=== PATIENT | female | born 1995 | race Caucasian/White ===

== ENCOUNTER → 2018-04-04 16:13 | Outpatient (CLI) | payer MEDICAID, SELFPAY ==
[2018-04-04 16:46] LABS: Abs Immature Grans 0.01 k/cumm (0.0-0.09); Absolute Basophil Count 0.05 k/cumm (0.0-0.2); Absolute Eosinophil Count 0.18 k/cumm (0.0-0.7); Absolute Monocyte Count 0.46 k/cumm (0.11-0.7); Absolute Neutrophil Count 2.84 k/cumm (1.2-6.7); Basophils % 0.9; Eosinophils % 3.1; HCT 38.3 % (36.0-46.0); HGB 12.7 g/dL (12.0-15.5); Immature Grans % 0.2; Lymphocytes % 39.4; Mean Corp. HGB Concentration 33.2 g/dL (32.0-36.0); Mean Corpuscular Hemoglobin 27.8 pg (27.0-33.0); Mean Corpuscular Volume 83.8 fL (80-95); Mean Platelet Volume 10.6 fL (8.0-11.0); Monocytes % 7.9; Neutrophils % 48.5; Platelet Count 280 x1000/uL (130-400); RBC 4.57 m/cumm (4.00-5.20); RBC Distribution Width 13.2 % (11.7-14.6); White Blood Cell Count 5.84 k/cumm (4.4-10.8)
[2018-04-04 17:39] LABS: ESR 15 MM/HR (0-20)
[2018-04-04 18:08] LABS: ALT 19 U/L (12-78); AST 17 U/L (15-37); Alkaline Phosphatase 53 U/L (46-116); Anion Gap 4.2 mmol/L (3-11); BUN 13 mg/dL (7-18); Bilirubin, Total 0.7 mg/dL (0.2-1.0); CO2 29.8 mmol/L (21.0-32.0); CREATININE 0.76 mg/dL (0.55-1.02); Chloride 105 mmol/L (98-107); Glucose 66 mg/dL (70-100); Sodium 139 mmol/L (136-145); Total Protein 7.6 g/dL (6.4-8.2)
[2018-04-06 09:56] LABS: Cyclic Citrullinated Peptide <2.5 U/mL (<5.0)
[2018-04-06 13:13] LABS: Lyme Ab w Rflx to Lyme Confirm Negative
[2018-04-06 14:18] LABS: ANA Interpretation Negative (NEGAT)
== END ==
PROVIDERS: PCP Family Medicine; Visit Provider Family Medicine
DX: R21 Rash and other nonspecific skin eruption (principal); R50.9 Fever, unspecified; M25.50 Pain in unspecified joint
CPT/HCPCS: 36415; 80053; 85652; 86200; 85025; 86038; 86140; 86618

== ENCOUNTER 2018-05-01 16:34 | Outpatient (REF) | payer MEDICAID, SELFPAY ==
[2018-05-01 20:43] LABS: TSH (W/Ref FT4) 1.44 uIU/mL (0.358-3.74)
== END 2018-05-01 16:54 ==
LOC: NCHCN 16:34
PROVIDERS: PCP Family Medicine; Visit Provider Family Medicine
DX: M25.50 Pain in unspecified joint (principal)
CPT/HCPCS: 84443

== ENCOUNTER 2018-08-16 00:56 | Emergency (ER) | payer MEDICAID, SELFPAY ==
[2018-08-16] VITALS (23 sets, daily range): BP systolic 81–153; BP diastolic 62–116; PULSE 64–187; RESP 12–31; TEMP 36.6; O2SAT 97–100
--- NOTE | 2018-08-16 01:15 | DI.RAD_ITS ---
SYMPTOMS/DIAGNOSIS: POST INTUBATION AP PORTABLE CHEST: Comparison 04/29/14. The heart size and pulmonary vasculature are within normal limits. There is poor inspiration. The lungs are clear. No effusions or pneumothoraces are identified. There is an endotracheal tube. The tip of which is 3 cm above the nilson. There is a nasogastric tube which passes into the stomach. The bones appear intact. IMPRESSION: 1. No acute pulmonary process. 2. Endotracheal tube and nasogastric appear well positioned.
--- NOTE | 2018-08-16 01:28 | DI.VRAD_ITS ---
EXAM: XR Chest, 1 View EXAM DATE/TIME: 08/16/2018 12:46 AM CLINICAL HISTORY: 23 years old, female; Device placement; Other: Intubation TECHNIQUE: XR of the chest, 1 view. COMPARISON: CR ABD FLAT UPRIGHT PA CHEST 04/29/2014 7:21 PM FINDINGS: Tubes, catheters and devices: An endotracheal tube is present with termination approximately 3.5 cm from the nilson. An enteric tube is seen to course into the left upper quadrant. Lungs: Unremarkable. No consolidation. Pleural space: Unremarkable. No pleural effusion. No pneumothorax. Heart/Mediastinum: Unremarkable. No cardiomegaly. Bones/joints: Unremarkable. IMPRESSION: 1. No acute findings. 2. Endotracheal tube appears well-positioned. Dictated and Authenticated by: Fede Wei MD. Ordering:BOSSMAN Scott MD
[2018-08-16 01:36] LABS: Abs Immature Grans 0.02 k/cumm (0.0-0.09); Absolute Basophil Count 0.04 k/cumm (0.0-0.2); Absolute Eosinophil Count 0.12 k/cumm (0.0-0.7); Absolute Lymphocyte Count 2.85 k/cumm (1.2-3.4); Absolute Monocyte Count 0.66 k/cumm (0.11-0.7); Absolute Neutrophil Count 3.52 k/cumm (1.2-6.7); Basophils % 0.6; Eosinophils % 1.7; HCT 37.2 % (36.0-46.0); HGB 12.8 g/dL (12.0-15.5); Immature Grans % 0.3; Lymphocytes % 39.5; Mean Corp. HGB Concentration 34.4 g/dL (32.0-36.0); Mean Corpuscular Hemoglobin 28.6 pg (27.0-33.0); Mean Corpuscular Volume 83.2 fL (80-95); Monocytes % 9.2; Neutrophils % 48.7; Platelet Count 220 x1000/uL (130-400); RBC 4.47 m/cumm (4.00-5.20); RBC Distribution Width 12.7 % (11.7-14.6); White Blood Cell Count 7.21 k/cumm (4.4-10.8)
[2018-08-16 01:57] LABS: AST 14 U/L (15-37); Albumin 3.5 g/dL (3.4-5.0); Alkaline Phosphatase 48 U/L (46-116); BUN 13 mg/dL (7-18); Bilirubin, Total 0.4 mg/dL (0.2-1.0); CREATININE 0.88 mg/dL (0.55-1.02); Calcium 7.9 mg/dL (8.5-10.1); Chloride 107 mmol/L (98-107); Glucose 113 mg/dL (70-100); Magnesium 1.6 mg/dL (1.8-2.4); Potassium 3.3 mmol/L (3.5-5.1); Salicylate < 2.8 mg/dL (2.8-20.0); Sodium 144 mmol/L (136-145); Total Protein 6.8 g/dL (6.4-8.2)
[2018-08-16 02:03] LABS: Acetaminophen < 2 ug/mL (10-30)
[2018-08-16 02:08] LABS: ALT 16 U/L (12-78)
--- NOTE | 2018-08-16 02:12 | NUR.NOTE ---
Nursing Note: 0044-arrived via EMS by carlos. 0045 in room IV in RT AC 20 started by EMS. 0048 IV attempted x 1 without success. P 64. R 12. 127/69. 02 NC pre oxy for intubation at 10 liters. 0056 Etomidate 15 mg given IV R AC. 0057 Slim 50 mg IV given R AC. 0058 Versed gtt started 10 20 mcg/kg/hr 0100 bilateral breath sounds noted and C02 detector changing colors to yellow to purple. 0101 attached to vent settings auto set. 0101 rash noted 0102 diaz cath 18 fr. Pulse 135. 0104 NG Tube 18 fr left nare at 55 cm. 0106 Solumedrol 125 mg IV given R AC. 0109 Preg test negative 0109 portable chest xray finished. RT arrived 0116 zofran 4 mg IV given Right AC. 0117 bicarb 100 meq 2 amps pushed IVP 0118 bicarb 250 ml/hr IV started Rt ac 0123 50 gram act. charcoal given NG with 125 ml free water followed. 0123 rash gone. 142/92 112 P. labs drawn over IV. 0130 suction with yanker partial vomited. 0131 versed increased to 25 mcg/kg/hr 0134 versed titrated to 30 0135 versed titrated to 35 see vitals captured 0144 Versed 2 mg left forarm IV push 0150 RT suctioned 0150 fentanyl IV started at 2 mcg/kg/hr 0155 fentnayl 3 mcg/kg/hr IV 0157 40 mg propolol 0159 Calex here and report given to Rajiv Lazaro. 204 -report to Michele [facility].
[2018-08-16 02:21] LABS: ETHANOL BLOOD < 3.0 mg/dL (<3)
--- NOTE | 2018-08-16 02:51 | W.ED.GENAD ---
Discharge Plan Disposition Patient Disposition: [facility] Condition: Stable Discharge Details Chief Complaint: OD/Poison Clinical Impression: Overdose of tricyclic antidepressants Reason For Visit: JOHN Primary Care Provider: Yojana Lemons ED Provider: Tyler Giang [place] Meds and New Rx's Prescriptions: No Action acetaminophen [Tylenol] 325 MG tablet 500 mg PO TWO DAILY PRN RF: 0 albuterol sulfate 8.5 GM HFA aerosol inhaler 1 - 2 puff Inhalation Q6H PRN RF: 0 clotrimazole-betamethasone [Lotrisone] 45 GM cream 15 gm Topical BID Qty: 1 RF: 1 ciprofloxacin HCl 250 MG tablet 250 mg PO post-coital Qty: 40 RF: 3 etonogestrel [Nexplanon] 68 MG implant 68 mg SQ ONCE Qty: 1 RF: 0 tretinoin [Retin-A] 45 GM cream 45 gm Topical HS RF: 0 acetaminophen [Tylenol Extra Strength] 500 MG tablet 1,000 mg PO DAILY RF: 0 citalopram 20 MG tablet 10 mg PO DAILY RF: 0 amitriptyline 10 MG tablet 20 mg PO HS RF: 0 albuterol sulfate [Ventolin HFA] 8 GM HFA aerosol inhaler 2 puff Inhalation Q6H PRN RF: 0 clindamycin phosphate [Cleocin T] 60 ML lotion 60 ml Topical RF: 0 albuterol sulfate [Proventil HFA] 6.7 GM HFA aerosol inhaler 2 puff Inhalation Q4H PRN PRNQty: 1 RF: 0 Discharge Data Discharge Date/Time-TO BE ENTERED AT DEPARTURE: 08/16/18 02:14 Medical Decision Making Patient presents status post amitriptyline overdose. She arrives somnolent and it is almost impossible to understand her because of slurred speech. She does have normal vitals and is not tachycardic. Her pupils are midrange and sluggish. An EKG was immediately obtained. Initial EKG is sinus rhythm at 75. QRS is at 100. The R wave in aVR is reasonable. There are no ST changes. At this point I elected to secure the airway and plan on repeat EKG once airway and second IV established. Call was placed to [facility] previous to patient arrival. They did have an ICU bed available if she indeed needed one. Patient was intubated without difficulty. Please see procedure note. Reyes and NG tube placed. Portable chest x-ray obtained which confirms endotracheal placement as well as NG tube placement. Second IV established. Repeat EKG obtained. This EKG is sinus tachycardia at 114. The QRS remains at 100 but the R wave in aVR has become larger. She is starting to have ST depression. 2 amps of bicarb IV push were given. Sodium bicarb drip was started. Patient was placed on a Versed drip for sedation postintubation. Patient was given Zofran and then had aqueous charcoal pushed down the NG tube. Laboratory studies show a normal CBC. Chemistry significant for potassium 3.3, calcium 7.9, magnesium 1.6. Salicylate, acetaminophen, ethyl alcohol all negative. test negative. A third EKG is obtained. Sinus tachycardia at 119. QRS is narrowed to 96. The R wave in aVR has gone back to normal size. ST changes have improved. Bicarb seems to have improved her EKG changes. Case was discussed with [facility] ICU team. Patient is accepted for transfer to [facility]. She will be going by ambulance with medic. Prior to transfer her sedation was wearing off. The Versed was upped. Fentanyl was started. She received a few boluses of Versed and ultimately a couple boluses of propofol. She left here sedated on both fentanyl and Versed drip. An EKG just prior to the leaving showed sinus rhythm at 94. QRS was at 98. R wave in aVR looked fine. Minimal ST changes. I did discuss with the mother and father patient's management here. They were in the room once she had been stabilized. Patient is transferred to [facility] ICU in stable condition with a diagnosis of try cyclic antidepressant overdose. Lab Data Lab results reviewed: Yes I reviewed the patient's lab results. ECG Data Attestation: I personally reviewed and interpreted this ECG (s) as follows: Interpretation: please see MDM; multiple EKG done HPI General Mode of arrival: EMS. Date/Time Provider Initiated Documentation: 08/16/18 01:14. Limitations to Documentation: altered mental status. Information obtained by: patient, family and EMS. HPI Narrative: Patient is brought in by EMS after alleged overdose of amitriptyline. Per report patient just had this bottle filled. There was a maximum of ninety 10 mg tablets. She says she took the whole bottle 1-2 hours prior. Mother actually called here asking whether she should call 911 or not. We told her that she absolutely should. On EMS arrival patient was somnolent but able to answer questions. She had normal vital signs. She appeared to have a narrow QRS on the monitor. She was transported here with IV in place. Related Data Home Medications Medication Instructions Recorded Confirmed acetaminophen [Tylenol] 500 mg PO TWO DAILY PRN tab-cap 08/29/13 12/12/14 albuterol sulfate 1 - 2 puff INHALATION Q6H PRN 08/29/13 12/12/14 inhaler clotrimazole-betamethasone 15 gm TOPICAL BID #1 tube 09/16/14 [Lotrisone Cream] ciprofloxacin HCl 250 mg PO post-coital #40 tab 09/11/15 etonogestrel [Nexplanon] 68 mg SQ ONCE #1 implant 09/17/15 acetaminophen [Tylenol Extra 1,000 mg PO DAILY tab-cap 01/15/16 Strength] albuterol sulfate [Ventolin Hfa] 2 puff INHALATION Q6H PRN inhaler 01/15/16 amitriptyline 20 mg PO HS tab-cap 01/15/16 citalopram 10 mg PO DAILY tab-cap 01/15/16 clindamycin phosphate [Cleocin T] 60 ml TOPICAL script 01/15/16 tretinoin [Retin-A 0.1% Cream] 45 gm TOPICAL HS script 01/15/16 albuterol sulfate [Proventil HFA] 2 puff INHALATION Q4H PRN PRN #1 03/27/16 [email or web address] Previous Rx's Medication Instructions Recorded albuterol sulfate [Proventil HFA] 2 puff INHALATION Q4H PRN PRN #1 03/27/16 [email or web address] Allergies Allergy/AdvReac Type Severity Reaction Status Date / Time No Known Drug Allergies Allergy none Unverified 12/20/15 04:26 General Stated Complaint: OD/Poison NEGIN: 1 Review of Systems Review of Systems Unobtainable due to mental status [facility] Medical History Anxiety (Chronic) Asthma (Chronic) Previous known suicide attempt (Chronic) Social History Smoking/Tobacco Use Status: Never Exam Const General: lethargic Limitations: altered mental status [facility] Head: normocephalic and atraumatic Mouth: oropharynx normal Throat: posterior oropharynx normal Eyes Pupils: PERRL (mid range and sluggish) Neck Neck: trachea midline and supple Resp Auscultation: clear to auscultation bilaterally Cardio Rate: regular rate Rhythm: regular rhythm Heart Sounds: S1 normal and S2 normal Pulses: normal peripheral pulses GI Inspection: normal to inspection Palpation: soft and nontender Skin General skin exam: no rashes or lesions noted Neuro General: no focal motor deficits, CN's II-XI intact bilaterally and other (somnolent/decreased level of consciousness) Course Vital Signs Respiratory Rate 16 08/16/18 00:41 Temperature 97.9 F 08/16/18 01:10 Temperature Source Skin 08/16/18 01:10 Pulse 89 08/16/18 01:56 Pulse 96 H 08/16/18 01:51 Respiratory Rate 12 08/16/18 02:11 Respiratory Effort 08/16/18 01:53 Respiratory Depth Normal 08/16/18 00:41 Respiratory Pattern Normal 08/16/18 00:41 Blood Pressure 128/76 08/16/18 01:56 Blood Pressure Mean 88 08/16/18 01:56 Blood Pressure Position Supine 08/16/18 01:10 Pulse Oximetry 98 08/16/18 02:11 Respiratory End-tidal CO2 32 08/16/18 02:11 Oxygen Delivery Method Room Air 08/16/18 01:10 Oxygen Flow Rate 0 08/16/18 01:10 Fraction of Inspired Oxygen (FIO2) 21 08/16/18 02:11 Lab/Test Results Lab/Test Results: Laboratory Tests Range/Units 08/16/18 08/16/18 08/16/18 01:25 01:25 01:25 WBC (4.4-10.8) k/cumm 7.21 RBC (4.00-5.20) m/cumm 4.47 Hgb (12.0-15.5) g/dL 12.8 Hct (36.0-46.0) % 37.2 MCV (80-95) fL 83.2 MCH (27.0-33.0) pg 28.6 MCHC (32.0-36.0) g/dL 34.4 RDW (11.7-14.6) % 12.7 Plt Count (130-400) x1000/uL 220 MPV (8.0-11.0) fL 11.0 Immature Gran % 0.3 Neutrophils % 48.7 Lymphocytes % 39.5 Monocytes % 9.2 Eosinophils % 1.7 Basophils % 0.6 Absolute Neutrophils (1.2-6.7) k/cumm 3.52 Absolute Lymphocytes (1.2-3.4) k/cumm 2.85 Absolute Monocytes (0.11-0.7) k/cumm 0.66 Absolute Eosinophils (0.0-0.7) k/cumm 0.12 Absolute Basophils (0.0-0.2) k/cumm 0.04 Sodium (136-145) mmol/L 144 Potassium (3.5-5.1) mmol/L 3.3 L Chloride (98-107) mmol/L 107 Carbon Dioxide (21.0-32.0) mmol/L 31.0 Anion Gap (3-11) mmol/L 6.0 BUN (7-18) mg/dL 13 Creatinine (0.55-1.02) mg/dL 0.88 Estimated GFR/1.73 m2 (mL/min/1.73m2) >= 60.00 Glucose (70-100) mg/dL 113 H Calcium (8.5-10.1) mg/dL 7.9 L Magnesium (1.8-2.4) mg/dL 1.6 L Total Bilirubin (0.2-1.0) mg/dL 0.4 AST (15-37) U/L 14 L ALT (12-78) U/L 16 Alkaline Phosphatase (46-116) U/L 48 Total Protein (6.4-8.2) g/dL 6.8 Albumin (3.4-5.0) g/dL 3.5 Salicylates (2.8-20.0) mg/dL < 2.8 L Acetaminophen (10-30) ug/mL < 2 L Ethyl Alcohol (<3) mg/dL < 3.0 Procedures Intubation Time out performed: Yes sedative: Etomidate Mg Given: 15 paralytic: Rocuronium Mg Given: 50 Laryngoscope: Gerardo ET Tube Size: 7 ET Tube Uncuffed: Yes Tube Secured Depth (cm): 22 Tube Secured Location: lips Tube Placement Confirmation: visualized tube passing through cords, equal breath sounds bilaterally and confirmation by capnometry Patient Tolerated Procedure: well Intubation Complications: none Critical Care Time Critical Care Time: Yes Total Critical Care Time: 60 Attestation: Management of TCA overdose
--- NOTE | 2018-08-16 03:08 | ED.GENADUL_ITS ---
Discharge Plan Disposition Patient Disposition: [facility] Condition: Stable Discharge Details Chief Complaint: OD/Poison Clinical Impression: Overdose of tricyclic antidepressants Reason For Visit: JOHN Primary Care Provider: Yojana Lemons ED Provider: Tyler Giang [place] Meds and New Rx's Prescriptions: No Action acetaminophen [Tylenol] 325 MG tablet 500 mg PO TWO DAILY PRN RF: 0 albuterol sulfate 8.5 GM HFA aerosol inhaler 1 - 2 puff Inhalation Q6H PRN RF: 0 clotrimazole-betamethasone [Lotrisone] 45 GM cream 15 gm Topical BID Qty: 1 RF: 1 ciprofloxacin HCl 250 MG tablet 250 mg PO post-coital Qty: 40 RF: 3 etonogestrel [Nexplanon] 68 MG implant 68 mg SQ ONCE Qty: 1 RF: 0 tretinoin [Retin-A] 45 GM cream 45 gm Topical HS RF: 0 acetaminophen [Tylenol Extra Strength] 500 MG tablet 1,000 mg PO DAILY RF: 0 citalopram 20 MG tablet 10 mg PO DAILY RF: 0 amitriptyline 10 MG tablet 20 mg PO HS RF: 0 albuterol sulfate [Ventolin HFA] 8 GM HFA aerosol inhaler 2 puff Inhalation Q6H PRN RF: 0 clindamycin phosphate [Cleocin T] 60 ML lotion 60 ml Topical RF: 0 albuterol sulfate [Proventil HFA] 6.7 GM HFA aerosol inhaler 2 puff Inhalation Q4H PRN PRNQty: 1 RF: 0 Discharge Data Discharge Date/Time-TO BE ENTERED AT DEPARTURE: 08/16/18 02:14 Medical Decision Making Patient presents status post amitriptyline overdose. She arrives somnolent and it is almost impossible to understand her because of slurred speech. She does have normal vitals and is not tachycardic. Her pupils are midrange and sluggish. An EKG was immediately obtained. Initial EKG is sinus rhythm at 75. QRS is at 100. The R wave in aVR is reasonable. There are no ST changes. At this point I elected to secure the airway and plan on repeat EKG once airway and second IV established. Call was placed to [facility] previous to patient arrival. They did have an ICU bed available if she indeed needed one. Patient was intubated without difficulty. Please see procedure note. Reyes and NG tube placed. Portable chest x-ray obtained which confirms endotracheal placement as well as NG tube placement. Second IV established. Repeat EKG obtained. This EKG is sinus tachycardia at 114. The QRS remains at 100 but the R wave in aVR has become larger. She is starting to have ST depression. 2 amps of bicarb IV push were given. Sodium bicarb drip was started. Patient was placed on a Versed drip for sedation postintubation. Patient was given Zofran and then had aqueous charcoal pushed down the NG tube. Laboratory studies show a normal CBC. Chemistry significant for potassium 3.3, calcium 7.9, magnesium 1.6. Salicylate, acetaminophen, ethyl alcohol all negative. test negative. A third EKG is obtained. Sinus tachycardia at 119. QRS is narrowed to 96. The R wave in aVR has gone back to normal size. ST changes have improved. Bicarb seems to have improved her EKG changes. Case was discussed with [facility] ICU team. Patient is accepted for transfer to [facility]. She will be going by ambulance with medic. Prior to transfer her sedation was wearing off. The Versed was upped. Fentanyl was started. She received a few boluses of Versed and ultimately a couple boluses of propofol. She left here sedated on both fentanyl and Versed drip. An EKG just prior to th e leaving showed sinus rhythm at 94. QRS was at 98. R wave in aVR looked fine. Minimal ST changes. I did discuss with the mother and father patient's management here. They were in the room once she had been stabilized. Patient is transferred to [facility] ICU in stable condition with a diagnosis of try cyclic antidepressant overdose. Lab Data Lab results reviewed: Yes I reviewed the patient's lab results. ECG Data Attestation: I personally reviewed and interpreted this ECG (s) as follows: Interpretation: please see MDM; multiple EKG done HPI General Mode of arrival: EMS . Date/Time Provider Initiated Documentation: 08/16/18 01:14 . Limitations to Documentation: altered mental status . Information obtained by: patient, family and EMS . HPI Narrative: Patient is brought in by EMS after alleged overdose of amitriptyline. Per report patient just had this bottle filled. There was a maximum of ninety 10 mg tablets. She says she took the whole bottle 1-2 hours prior. Mother actually called here asking whether she should call 911 or not. We told her that she absolutely should. On EMS arrival patient was somnolent but able to answer questions. She had normal vital signs. She appeared to have a narrow QRS on the monitor. She was transported here with IV in place. Related Data Home Medications Medication Instructions Recorded Confirmed acetaminophen [Tylenol] 500 mg PO TWO DAILY PRN tab-cap 08/29/13 12/12/14 albuterol sulfate 1 - 2 puff INHALATION Q6H PRN 08/29/13 12/12/14 inhaler clotrimazole-betamethasone 15 gm TOPICAL BID #1 tube 09/16/14 [Lotrisone Cream] ciprofloxacin HCl 250 mg PO post-coital #40 tab 09/11/15 etonogestrel [Nexplanon] 68 mg SQ ONCE #1 implant 09/17/15 acetaminophen [Tylenol Extra 1,000 mg PO DAILY tab-cap 01/15/16 Strength] albuterol sulfate [Ventolin Hfa] 2 puff INHALATION Q6H PRN inhaler 01/15/16 amitriptyline 20 mg PO HS tab-cap 01/15/16 citalopram 10 mg PO DAILY tab-cap 01/15/16 clindamycin phosphate [Cleocin T] 60 ml TOPICAL script 01/15/16 tretinoin [Retin-A 0.1% Cream] 45 gm TOPICAL HS script 01/15/16 albuterol sulfate [Proventil HFA] 2 puff INHALATION Q4H PRN PRN #1 03/27/16 [email or web address] Previous Rx's Medication Instructions Recorded albuterol sulfate [Proventil HFA] 2 puff INHALATION Q4H PRN PRN #1 03/27/16 [email or web address] Allergies Allergy/AdvReac Type Severity Reaction Status Date / Time No Known Drug Allergies Allergy none Unverified 12/20/15 04:26 General Stated Complaint: OD/Poison NEGIN: 1 Review of Systems Review of Systems Unobtainable due to mental status [facility] Medical History Anxiety (Chronic) Asthma (Chronic) Previous known suicide attempt (Chronic) Social History Smoking/Tobacco Use Status: Never Exam Const General: lethargic Limitations: altered mental status [facility] Head: normocephalic and atraumatic Mouth: oropharynx normal Throat: posterior oropharynx normal Eyes Pupils: PERRL (mid range and sluggish) Neck Neck: trachea midline and supple Resp Auscultation: clear to auscultation bilaterally Cardio Rate: regular rate Rhythm: regular rhythm Heart Sounds: S1 normal and S2 normal Pulses: normal peripheral pulses GI Inspection: normal to inspection Palpation: soft and nontender Skin General skin exam: no rashes or lesions noted Neuro General: no focal motor deficits, CN's II-XI intact bilaterally and other (somnolent/decreased level of consciousness) Course Vital Signs Respiratory Rate 16 08/16/18 00:41 Temperature 97.9 F 08/16/18 01:10 Temperature Source Skin 08/16/18 01:10 Pulse 89 08/16/18 01:56 Pulse 96 H 08/16/18 01:51 Respiratory Rate 12 08/16/18 02:11 Respiratory Effort 08/16/18 01:53 Respiratory Depth Normal 08/16/18 00:41 Respiratory Pattern Normal 08/16/18 00:41 Blood Pressure 128/76 08/16/18 01:56 Blood Pressure Mean 88 08/16/18 01:56 Blood Pressure Position Supine 08/16/18 01:10 Pulse Oximetry 98 08/16/18 02:11 Respiratory End-tidal CO2 32 08/16/18 02:11 Oxygen Delivery Method Room Air 08/16/18 01:10 Oxygen Flow Rate 0 08/16/18 01:10 Fraction of Inspired Oxygen (FIO2) 21 08/16/18 02:11 Lab/Test Results Lab/Test Results: Laboratory Tests Range/Units 08/16/18 08/16/18 08/16/18 01:25 01:25 01:25 WBC (4.4-10.8) k/cumm 7.21 RBC (4.00-5.20) m/cumm 4.47 Hgb (12.0-15.5) g/dL 12.8 Hct (36.0-46.0) % 37.2 MCV (80-95) fL 83.2 MCH (27.0-33.0) pg 28.6 MCHC (32.0-36.0) g/dL 34.4 RDW (11.7-14.6) % 12.7 Plt Count (130-400) x1000/uL 220 MPV (8.0-11.0) fL 11.0 Immature Gran % 0.3 Neutrophils % 48.7 Lymphocytes % 39.5 Monocytes % 9.2 Eosinophils % 1.7 Basophils % 0.6 Absolute Neutrophils (1.2-6.7) k/cumm 3.52 Absolute Lymphocytes (1.2-3.4) k/cumm 2.85 Absolute Monocytes (0.11-0.7) k/cumm 0.66 Absolute Eosinophils (0.0-0.7) k/cumm 0.12 Absolute Basophils (0.0-0.2) k/cumm 0.04 Sodium (136-145) mmol/L 144 Potassium (3.5-5.1) mmol/L 3.3 L Chloride (98-107) mmol/L 107 Carbon Dioxide (21.0-32.0) mmol/L 31.0 Anion Gap (3-11) mmol/L 6.0 BUN (7-18) mg/dL 13 Creatinine (0.55-1.02) mg/dL 0.88 Estimated GFR/1.73 m2 (mL/min/1.73m2) >= 60.00 Glucose (70-100) mg/dL 113 H Calcium (8.5-10.1) mg/dL 7.9 L Magnesium (1.8-2.4) mg/dL 1.6 L Total Bilirubin (0.2-1.0) mg/dL 0.4 AST (15-37) U/L 14 L ALT (12-78) U/L 16 Alkaline Phosphatase (46-116) U/L 48 Total Protein (6.4-8.2) g/dL 6.8 Albumin (3.4-5.0) g/dL 3.5 Salicylates (2.8-20.0) mg/dL < 2.8 L Acetaminophen (10-30) ug/mL < 2 L Ethyl Alcohol (<3) mg/dL < 3.0 Procedures Intubation Time out performed: Yes sedative: Etomidate Mg Given: 15 paralytic: Rocuronium Mg Given: 50 Laryngoscope: Gerardo ET Tube Size: 7 ET Tube Uncuffed: Yes Tube Secured Depth (cm): 22 Tube Secured Location: lips Tube Placement Confirmation: visualized tube passing through cords, equal breath sounds bilaterally and confirmation by capnometry Patient Tolerated Procedure: well Intubation Complications: none Critical Care Time Critical Care Time: Yes Total Critical Care Time: 60 Attestation: Management of TCA overdose
== END 2018-08-16 02:13 | disposition short-term general hospital (02) ==
LOC: ER 01:30
PROVIDERS: Emergency Provider Emergency Medicine; PCP Family Medicine
DX: T43.012A Poisoning by tricyclic antidepressants, intentional self-harm, initial encounter (principal); R40.0 Somnolence; R21 Rash and other nonspecific skin eruption; R47.81 Slurred speech; R94.31 Abnormal electrocardiogram [ECG] [EKG]; R00.0 Tachycardia, unspecified; Z91.5 Personal history of self-harm
CPT/HCPCS: 31500; 36415; 43753; 51702; 71045; 80053; 81025; 93005; 96365; 96368; 96375; 96376; 99291; 80320; 80329; 83735; 85025; 93010; J3490

== ENCOUNTER 2018-11-08 09:24 | Outpatient (CLI) | payer MEDICAID, SELFPAY ==
--- NOTE | 2018-11-08 09:15 | DI.RAD_ITS ---
SYMPTOM/DIAGNOSIS: RT TIBIAL TORSION, RT FOOT EXTERNAL ROTATION, RT ANKLE EXTERNAL ROTATION, PES PLANUS RIGHT TIB-FIB: The images were obtained with the right foot in external rotation. No bony or joint abnormality is apparent. RIGHT ANKLE: No bony or joint abnormality is seen. LEG LENGTH: The left leg measures 84 cm. The right leg measures 83 cm.
== END 2018-11-08 09:44 ==
PROVIDERS: PCP Family Medicine; Visit Provider Student in an Organized Health Care Education/Training Program
DX: M21.861 Other specified acquired deformities of right lower leg (principal); M21.70 Unequal limb length (acquired), unspecified site
CPT/HCPCS: 73590; 73600; 77073

== ENCOUNTER 2018-12-09 12:37 | Emergency (ER) | payer MEDICAID, SELFPAY ==
[2018-12-09 12:41] VITALS: BP 114/60; PULSE 54; RESP 16; TEMP 36.7; O2SAT 98
--- NOTE | 2018-12-09 13:27 | ED.GENADUL_ITS ---
Discharge Plan Disposition Patient Disposition: HOME Discharge Details Chief Complaint: Orthopedic Clinical Impression: Sciatica of right side Primary Care Provider: Yojana Lemons ED Provider: Thom Burk Home Meds and New Rx's Prescriptions: New prednisone 20 mg tablet 40 mg PO DAILY 5 Days Qty: 10 RF: 0 Continued venlafaxine [Effexor XR] 75 mg capsule,extended release 24hr 137 mg PO DAILY RF: 0 prazosin 1 mg capsule 1 mg PO QHS RF: 0 acetaminophen [Tylenol] 325 MG tablet 500 mg PO TWO DAILY PRN RF: 0 albuterol sulfate 8.5 GM HFA aerosol inhaler 1 - 2 puff Inhalation Q6H PRN RF: 0 Nexplanon 68 MG implant 68 mg SQ ONCE Qty: 1 RF: 0 tretinoin [Retin-A] 45 GM cream 45 gm Topical HS RF: 0 acetaminophen [Tylenol Extra Strength] 500 MG tablet 1,000 mg PO DAILY RF: 0 albuterol sulfate [Ventolin HFA] 8 GM HFA aerosol inhaler 2 puff Inhalation Q6H PRN RF: 0 albuterol sulfate [Proventil HFA] 6.7 GM HFA aerosol inhaler 2 puff Inhalation Q4H PRN PRNQty: 1 RF: 0 Discharge Instructions Instructions: Sciatica (ED) Stand Alone Forms: Work Release Referrals: Yojana Lemons MD [Primary Care Provider] - 12/13/18 (as scheduled) Discharge Data Discharge Date/Time-TO BE ENTERED AT DEPARTURE: 12/09/18 13:32 Medical Decision Making This is a well-appearing 23-year-old female who presents to the emergency department with the above chief complaint. Vitals are stable. Exam reveals positive straight leg involving the right lower extremity. She has midline and paraspinal tenderness involving the lower lumbar spine. Significant pain noted over sciatic notch. She has no saddle paresthesias. No concern for cauda equina at this time. Symptoms today are more likely that of sciatica as she is at higher risk given her anatomical abnormality. We discussed supportive care and at this time initiating a short course of milligram 40 g daily x5 days. She has follow-up with her primary care provider within this time.. We discussed strict return precautions. She is stable for discharge at this time HPI General Date/Time Provider Initiated Documentation: 12/09/18 12:38 . 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 She describes the pain as numbness and tingling. Symptoms are exacerbated with movement and walking. She normally ambulates with a cane secondary to her tibial torsion. She is scheduled to see Ortho at [facility] for a tibial osteotomy on January 08 of this year. She was evaluated by her father who is a primary care physician who thought her symptoms today are secondary to sciatica. Her symptoms have been worsening over the last 2 to 3 days and was recommended that she come in for evaluation. She denies any urinary incontinence or retention. No saddle paresthesias. Related Data Home Medications Medication Instructions Recorded Confirmed acetaminophen [Tylenol] 500 mg PO TWO DAILY PRN tab-cap 08/29/13 12/09/18 albuterol sulfate 1 - 2 puff INHALATION Q6H PRN 08/29/13 12/09/18 inhaler Nexplanon 68 mg SQ ONCE #1 implant 09/17/15 12/09/18 acetaminophen [Tylenol Extra 1,000 mg PO DAILY tab-cap 01/15/16 12/09/18 Strength] albuterol sulfate [Ventolin HFA] 2 puff INHALATION Q6H PRN inhaler 01/15/16 12/09/18 tretinoin [Retin-A] 45 gm TOPICAL HS script 01/15/16 12/09/18 albuterol sulfate [Proventil HFA] 2 puff INHALATION Q4H PRN PRN #1 03/27/16 12/09/18 [email or web address] prazosin 1 mg capsule 1 mg PO QHS 11/08/18 12/09/18 venlafaxine ER 75 mg 137 mg PO DAILY cap 11/08/18 12/09/18 capsule,extended release 24 hr prednisone 40 mg PO DAILY 5 Days #10 tab 12/09/18 Previous Rx's Medication Instructions Recorded albuterol sulfate [Proventil HFA] 2 puff INHALATION Q4H PRN PRN #1 03/27/16 [email or web address] prednisone 40 mg PO DAILY 5 Days #10 tab 12/09/18 Allergies Allergy/AdvReac Type Severity Reaction Status Date / Time house dust Allergy Mild Verified 12/09/18 12:47 No Known Drug Allergies Allergy none Unverified 12/09/18 12:47 General Stated Complaint: Orthopedic NEGIN: 3 Review of Systems Constitutional Reports as per HPI Gastrointestinal Denies cramping, Denies diarrhea, Denies loose stools, Denies nausea and Denies vomiting Genitourinary Denies abnormal menses, Denies dysuria, Denies pelvic pain, Denies urinary incontinence, Denies urinary hesitancy, Denies urinary urgency and Denies vaginal discharge Musculoskeletal Reports as per HPI, Reports limited range of motion, Reports numbness (Right lower) and Reports tingling (RLE) Neurologic Reports numbness (Right lower), Reports radicular pain, Reports tingling (RLE) and Reports paresthesias [facility] Medical History ADD (attention deficit disorder) (Acute) Acne (Acute) Adjustment disorder (Acute) Arthralgia (Acute) Butterfly rash (Acute) Contraception (Acute) Dental caries (Acute) Dysphonia (Acute) Headache (Acute) History of recurrent UTIs (Acute) PTSD (post-traumatic stress disorder) (Acute) Panic attack (Acute) TBI (traumatic brain injury) (Acute) TMJ disease (Acute) Trichotillomania (Acute) Vesicoureteral reflux (Acute) Anxiety (Chronic) Asthma (Chronic) Depression (Chronic) Previous known suicide attempt (Chronic) Social History Smoking/Tobacco Use Status: Never Alcohol Intake: current Alcohol Intake frequency: holidays/special occasions only Drug use: Daily Substance use type: marijuana Do you feel safe at home: Yes Do you feel safe in your relationship?: Yes Exam Const General: cooperative, healthy appearing, comfortable and no acute distress Orientation: alert, awake and oriented x3 Neck Neck: normal visual inspection Chest Chest: normal inspection of the chest Resp Effort & Inspection: normal respiratory effort and able to speak in complete sentences Cardio Rate: regular rate Rhythm: regular rhythm Pulses: normal peripheral pulses GI Inspection: normal to inspection Palpation: soft, no hepatosplenomegaly and nontender Back/Spine/Pelvis Back: no CVA tenderness Cervical Spine: normal cervical lordosis and cervical ROM normal Thoracic/Lumbar Spine: pain with thoraco-lumbar ROM, paraspinal tenderness, thoraco-lumbar ROM limited and straight leg raise positive (Right side) Pelvis: no pain with anterior-posterior compression Skin General skin exam: no rashes or lesions noted Neuro General: no focal motor deficits Motor: muscle tone normal throughout Sensory Exam: no sensory deficits noted Course Vital Signs Temperature 36.7 C 12/09/18 12:41 Pulse 54 L 12/09/18 12:41 Respiratory Rate 16 12/09/18 12:41 Blood Pressure 114/60 12/09/18 12:41 Pulse Oximetry 98 12/09/18 12:41 Temperature 36.7 C 12/09/18 12:41 Temperature Source Tympanic 12/09/18 12:41 Pulse 54 L 12/09/18 12:41 Respiratory Rate 16 12/09/18 12:41 Respiratory Effort Non-Labored 12/09/18 12:57 Blood Pressure 114/60 12/09/18 12:41 Pulse Oximetry 98 12/09/18 12:41 Oxygen Delivery Method Room Air 12/09/18 12:41 Oxygen Flow Rate 0 12/09/18 12:41 Pain Level 6 12/09/18 12:58
== END 2018-12-09 13:32 | disposition home or self-care (01) ==
PROVIDERS: Emergency Provider Physician Assistant; PCP Family Medicine
DX: M54.41 Lumbago with sciatica, right side (principal)
CPT/HCPCS: 99283

== ENCOUNTER 2019-06-07 19:13 | Outpatient (REF) | payer SELFPAY ==
[2019-06-07 21:06] LABS: Bilirubin Negative (Negative); Blood Trace-intact (Negative); Clarity Cloudy (Clear); Glucose Negative (Negative); Ketones Negative (Negative); Leukocyte Esterase Moderate (Negative); Nitrite Negative (Negative); Specific Gravity 1.025 (1.005-1.025); Urobilinogen 0.2 EU/dL (Up TO 0.2); pH 6.5 (5-8)
[2019-06-07 21:22] LABS: Bacteria Few HPF (Negative); Epithelial Cells Many HPF (Negative); Other Cells Few Transitional (Negative); RBC 0-2 (0-2); WBC >50 HPF (0-5)
[2019-06-07 21:23] LABS: C & S Indicated? Yes; Crystals Negative HPF (Negative); Mucus Heavy (Negative)
== END 2019-06-07 19:33 ==
LOC: NCHCN 19:13
PROVIDERS: PCP Family Medicine; Visit Provider Family Medicine
DX: N39.0 Urinary tract infection, site not specified (principal)
CPT/HCPCS: 81003; 81015; 87086

== ENCOUNTER 2019-06-14 14:12 | Outpatient (REF) | payer SELFPAY ==
[2019-06-14 18:23] LABS: Bilirubin Negative (Negative); Blood Negative (Negative); Clarity Clear (Clear); Glucose Negative (Negative); Ketones Negative (Negative); Leukocyte Esterase Negative (Negative); Nitrite Negative (Negative); Specific Gravity >= 1.030 (1.005-1.025); Urobilinogen 0.2 EU/dL (Up TO 0.2)
[2019-06-19 08:19] LABS: Chlamydia Result Negative (Negative); GC Result Negative (Negative)
[2019-06-19 08:23] LABS: Specimen Description Urine
== END 2019-06-14 14:32 ==
LOC: NCHCN 14:12
PROVIDERS: PCP Family Medicine; Visit Provider Family Medicine
DX: N39.0 Urinary tract infection, site not specified (principal); Z11.3 Encounter for screening for infections with a predominantly sexual mode of transmission
CPT/HCPCS: 87491; 87591; 81003

== ENCOUNTER 2020-03-06 14:05 | Outpatient (REF) | payer MEDICAID, SELFPAY ==
[2020-03-08 19:12] LABS: SARS-CoV-2 RNA Undetected (Undetected); SARS-CoV-2 Specimen Source Nasopharynx
== END 2020-03-06 14:25 ==
LOC: NCHCN 14:05
PROVIDERS: PCP Family Medicine; Visit Provider Physician Assistant
DX: R05 Cough (principal)
CPT/HCPCS: U0003

== ENCOUNTER 2020-03-25 14:19 | Emergency (ER) | payer MEDICAID, SELFPAY ==
[2020-03-25] VITALS (18 sets, daily range): BP systolic 91–108; BP diastolic 44–66; PULSE 50–75; RESP 16–23; TEMP 36.5–36.8; O2SAT 95–98
[2020-03-25 14:48] LABS: Bilirubin Negative (Negative); Blood Moderate (Negative); Clarity Cloudy (Clear); Glucose Negative (Negative); Ketones Negative (Negative); Leukocyte Esterase Trace (Negative); Nitrite Negative (Negative); Specific Gravity 1.025 (1.005-1.025); Urobilinogen 0.2 EU/dL (Up TO 0.2); pH 7.5 (5-8)
[2020-03-25 14:58] LABS: WBC >50 HPF (0-5)
[2020-03-25 14:59] LABS: Bacteria Many HPF (Negative); C & S Indicated? Yes; Casts Negative LPF (Negative); Crystals Moderate Amorphous HPF (Negative); Epithelial Cells Few HPF (Negative); Mucus Negative (Negative)
--- NOTE | 2020-03-25 14:59 | ED.GENADUL_ITS ---
Discharge Plan Disposition Patient Disposition: HOME Condition: Fair Discharge Details Chief Complaint: Urinary Clinical Impression: UTI (urinary tract infection), Bilateral kidney stones Primary Care Provider: Yojana Lemons ED Provider: China Gusman Home Meds and New Rx's Prescriptions: New ondansetron 4 mg tablet,disintegrating 4 mg PO Q6H PRN (Reason: nausea and vomiting) Qty: 10 RF: 0 ciprofloxacin HCl 500 mg tablet 500 mg PO BID Qty: 10 RF: 0 oxycodone 5 mg tablet 5 mg PO Q6H PRN (Reason: pain) Qty: 9 RF: 0 Continued venlafaxine [Effexor XR] 75 mg capsule,extended release 24hr 137 mg PO DAILY RF: 0 acetaminophen [Tylenol] 325 MG tablet 650 mg PO TWO DAILY PRN RF: 0 tretinoin [Retin-A] 45 GM cream 45 gm Topical HS RF: 0 acetaminophen [Tylenol Extra Strength] 500 MG tablet 1,000 mg PO DAILY PRNRF: 0 albuterol sulfate [Ventolin HFA] 8 GM HFA aerosol inhaler 2 puff Inhalation Q6H PRN RF: 0 hydroxyzine pamoate [Vistaril] 25 mg capsule 25 mg PO TID PRN (Reason: IC) Qty: 30 RF: 1 Discharge Instructions Instructions: Kidney Stones (ED), Urinary Tract Infection in Women (ED) Additional Instructions: Continue to encourage water intake. You may use Tylenol and/or ibuprofen as needed for discomfort. Your next dose of ibuprofen may be at 1130 tonight, your next dose of Tylenol can be at 1030 tonight. If this is unsuccessful relieving her discomfort, you may use the oxycodone as prescribed. Please take medicat ion only as prescribed. Keep in a safe place do not drive while taking this medication. Please take the antibiotics as prescribed. Even if symptoms improve, please take the entire course. You will need follow-up with urology, please call tomorrow to schedule follow-up appointment for . Number listed below. You may use the Zofran as prescribed to help with any recurrence of your nausea vomiting. He develop fever/chills, increased pain, inability to stay hydrated or other new/worsening symptom please seek care urgently once again. Referrals: Faiza Butler DNP [NURSE PRACTITIONER] - Yojana Lemons MD [Primary Care Provider] - Discharge Data Discharge Date/Time-TO BE ENTERED AT DEPARTURE: 03/25/20 18:25 Medical Decision Making <Crystal Rossi - Last Filed: 03/26/20 10:42> 25-year-old female presents to the ER with chief complaint of right-sided flank pain, dysuria associated with nausea vomiting and diarrhea for the last 2 to 3 days. Patient reports increased frequency of urination and dysuria. Describes pain as stabbing and burning, pain is constant also some mild left lower quadrant abdominal pain. Reports had a urinary tract infection approximately 2 to 3 months ago. At this time work-up ordered including CBC, CMP urinalysis resulted which shows moderate blood, trace leukocytes 5-10 RBCs greater than 50 WBC[address] culture is pending. CT abdomen pelvis without contrast rule out kidney stone versus Pyleo. Patient received 1 L normal saline in department, 4 mg of Zofran ODT,and Toradol 15mg IVP. Differential diagnosis includes but not limited to pyelonephritis, UTI, kidney stone, gastroenteritis Care is to be handed off to oncoming provider KAM Honeycutt pending CT abdomen pelvis results. Spoke with Faiza Uriostegui with urology clinic regarding patient pulmonary results of CT showed tiny nonobstructing bilateral kidney stones with no hydro-. Faiza states that she can follow-up in the clinic on and instructed for her to call in the a.m. to make an appointment. She recommends antibiotics and close follow-up with urology. [place] at bedside to discuss results with patient and plan of care for home. <KAM Honeycutt - Last Filed: 03/26/20 22:24> Care transition myself from Cindy Rossi NP with disposition pending. In brief, the patient is a pleasant 25-year-old female who came in today with chief complaint of dysuria, nausea and vomiting, left lower quadrant pain. Labs revealed no leukocytosis, stable H&H. Kidney function is within normal limits. No significant abnormalities on CMP. Urine significant for moderate amount of blood, trace leukocytes, over 50 WBC, many bacteria. Patient has been diagnosed with UTI. CT scan results are just back: ABDOMEN: Lung Bases: Normal where visualized. Liver: Normal density. No measurable mass. Gallbladder and biliary tract: No radiodense calculus or dilation. Pancreas: Normal density, no abnormal calcifications or inflammatory process. Spleen: Normal. Kidneys: Normal size, contour and axis. A few tiny nonobstructing stones are seen bilaterally. No obstructive uropathy. No masses seen. Adrenal glands: No masses seen. Lymph nodes: Within normal limits. Abdominal Aorta: Abdominal portion non-dilated. PELVIS: Bladder: Symmetric distention, no gross wall thickening. Bowel: No obstruction or bowel wall thickening. Normal appendix Peritoneal cavity: No ascites, collection or mesenteric inflammatory response. Reproductive organs: Within normal limits. Bones: Within normal limits. IMPRESSION: Tiny nonobstructing bilateral renal calculi. GORGE Rossi had spoken with Faiza Butler NP with urology. She has seen the patient historically for interstitial cystitis. Recommended antibiotics and follow-up in the urology clinic on . I reassessed the patient, she does report that she is feeling better in terms of nausea but does continue to have some persistent pain. She had Toradol thus far, augment this with IV acetaminophen. Will also begin the patient on antibiotics. Will give IV ceftriaxone. Patient and I discussed findings and recommendations made by urology in depth. She was given return precautions. She will f/u with Faiza Butler NP in the next 2 days. She will return with any new/worsneing symptoms. Patient to be discharged home with oral ciprofloxacin. As OTC medications have been unsuccessful at alleviating her pain, will prescribe short course of oxycdone to help with discomfort. She will also be prescribed Zofran if her nausea/vomiting returns. She was given strict return precautions. All questions and concerns were addressed, she is in agreement with this plan. After patient had been discharged, she did call the department and is now reporting that she is allergic to ciprofloxacin as well as Bactrim. She had initially denied any allergies to antibiotics. Following the up-to-date pathway, will change to Augmentin. I did call this in to the patient's pharmacy of choice. HPI <Crystalgia Manton - Last Filed: 03/26/20 10:42> General Mode of arrival: ambulatory . Date/Time Provider Initiated Documentation: 03/25/20 14:49 . Limitations to Documentation: no limitations . Information obtained by: patient . HPI Narrative: 25-year-old female presents to the ER with chief complaint of right-sided flank pain, dysuria associated with nausea vomiting and diarrhea for the last 2 to 3 days. Patient reports increased frequency of urination and dysuria. Describes pain as stabbing and burning, pain is constant also some mild left lower quadrant abdominal pain. Reports had a urinary tract infection approximately 2 to 3 months ago. Related Data Home Medications Medication Instructions Recorded Confirmed acetaminophen [Tylenol] 650 mg PO TWO DAILY PRN tab-cap 08/29/13 03/25/20 acetaminophen [Tylenol Extra 1,000 mg PO DAILY PRN tab-cap 01/15/16 03/25/20 Strength] albuterol sulfate [Ventolin HFA] 2 puff INHALATION Q6H PRN inhaler 01/15/16 03/25/20 tretinoin [Retin-A] 45 gm TOPICAL HS script 01/15/16 03/25/20 venlafaxine 75 mg capsule,extended 137 mg PO DAILY cap 11/08/18 03/25/20 release 24 hr hydroxyzine pamoate 25 mg capsule 25 mg PO TID PRN #30 cap 01/28/20 03/25/20 ciprofloxacin HCl 500 mg PO BID #10 tab 03/25/20 ondansetron 4 mg PO Q6H PRN #10 tab 03/25/20 oxycodone 5 mg PO Q6H PRN #9 tab 03/25/20 Previous Rx's Medication Instructions Recorded hydroxyzine pamoate 25 mg capsule 25 mg PO TID PRN #30 cap 01/28/20 ciprofloxacin HCl 500 mg PO BID #10 tab 03/25/20 ondansetron 4 mg PO Q6H PRN #10 tab 03/25/20 oxycodone 5 mg PO Q6H PRN #9 tab 03/25/20 Allergies Allergy/AdvReac Type Severity Reaction Status Date / Time house dust Allergy Mild Verified 03/25/20 14:31 No Known Drug Allergies Allergy none Unverified 03/25/20 14:31 General Stated Complaint: Urinary NEGIN: 3 Review of Systems <Crystal Rossi - Last Filed: 03/26/20 10:42> Narrative: Constitutional: Negative for weight loss, alert and oriented, well groomed, normal body habitus, appears comfortable. HEENT: Denies trauma, headaches, blurry vision, nasal discharge, sore throat, t rouble swallowing. Chest: Denies chest pain, palpitations, irregular rhythm, hypertension. Respiratory: Denies Shortness of breath, cough, hemoptysis. GI: Positive abdominal pain, right flank pain, diarrhea nausea and vomiting. : Denies rectal bleeding. Positive dysuria denies any vaginal discharge or bleeding Neuro: Denies dizziness, blurry vision, weakness, syncope, headache or facial numbness. Hematologic: Denies easy bruising, intolerance to heat or cold, hair loss. PFSH <Crystal Rossi - Last Filed: 03/26/20 10:42> Medical History Acne (Acute) ADD (attention deficit disorder) (Acute) Adjustment disorder (Acute) Anxiety (Chronic) Arthralgia (Acute) Asthma (Chronic) Butterfly rash (Acute) Contraception (Acute) Dental caries (Acute) Depression (Chronic) Dysphonia (Acute) Headache (Acute) History of recurrent UTIs (Acute) Panic attack (Acute) Previous known suicide attempt (Chronic) PTSD (post-traumatic stress disorder) (Acute) TBI (traumatic brain injury) (Acute) TMJ disease (Acute) Trichotillomania (Acute) Vesicoureteral reflux (Acute) Family History Mother Thyroid cancer Social History Smoking/Tobacco Use Status: Never Alcohol Intake: current Alcohol Intake frequency: holidays/special occasions only Drug use: Occasionally Substance use type: marijuana Do you feel safe at home: Yes Do you feel safe in your relationship?: Yes Female Reproductive History Menstrual control method: none History History 1 Para 0 Hx # Term Pregnancies Multiple births Hx # Pregnancies Ectopic pregnancies AB induced 1 Hx Number of Living Children AB spontaneous Exam <Crystal Rossi - Last Filed: 03/26/20 10:42> Narrative Exam Narrative: Constitutional: Alert and oriented x3. Appears stated age. Normal body habitus. Head: Normocephalic, no trauma. Eyes: Pupils PERRLA, Red reflex noted, EOM's intact. Eyelids symmetrical without lesions, discharge, or swelling. ENT: Bilateral TM's WNL, External ear normal to inspection, no mastoid TTP, swelling, or erythema, Nasal turbinates WNL, no nasal discharge. Normal dentition, Posterior pharynx WNL, no exudate. Chest: RRR, Normal S1, S2, distal pulses intact. Resp: Lungs clear to auscultation bilaterally, no wheezes, rales, or rhonchi. Abdomen: Soft, nondistended tender to palpation left lower quadrant, right CVA tenderness hyperactive bowel sounds all 4 quadrants. Musculoskeletal: Normal gait, 5/5 strength to all four extremities. Skin: No suspicious rashes or lesions. Capillary refill less than 2 sec. Neurologic: Cranial nerves II-XII intact. Alert and oriented x 3. DTR's intact. Hematologic/Lymphatic: No ecchymosis, no lymphadenopathy. Course <[facility] Filed: 03/26/20 10:42> Vital Signs Vital signs: Vital Signs Temperature 36.5 C 03/25/20 14:25 Pulse 75 03/25/20 14:25 Respiratory Rate 18 03/25/20 14:25 Blood Pressure 108/66 03/25/20 14:25 Pulse Oximetry 96 03/25/20 14:25 Temperature 36.5 C 03/25/20 14:25 Temperature Source Temporal Artery Scan 03/25/20 14:25 Pulse 75 03/25/20 14:25 Respiratory Rate 18 03/25/20 14:25 Blood Pressure 108/66 03/25/20 14:25 Blood Pressure Position Sitting 03/25/20 14:25 Pulse Oximetry 96 03/25/20 14:25 Oxygen Delivery Method Room Air 03/25/20 14:25 Oxygen Flow Rate 0 03/25/20 14:25 Pain Level 8 03/25/20 14:25 Lab/Test Results Lab/Test Results: Laboratory Tests Range/Units 03/25/20 12:40 Urine Color (Yellow) Yellow Urine Clarity (Clear) Cloudy Urine pH (5-8) 7.5 Ur Specific [place] (1.005-1.025) 1.025 Urine Protein (Negative) mg/dL 30 H Urine Ketones (Negative) mg/dL Negative Urine Blood (Negative) Moderate H Urine Nitrite (Negative) Negative Urine Bilirubin (Negative) Negative Urine Urobilinogen (Up TO 0.2) EU/dL 0.2 Ur Leukocyte Esterase (Negative) Trace H Urine Glucose (Negative) mg/dL Negative POC- Test(urine) Negative Sign Out <[facility] Filed: 03/26/20 10:42> Sign Out Data: Sign Out Comment: Pending CT result. Pyelonephritis versus Kidney stone Last updated by Crystal Rossi at 03/25/20 15:43
[2020-03-25] MEDS: Ondansetron O.D.T. 4 MG TABEF PO (15:02)
[2020-03-25] MEDS: Normal Saline 1,000 ML 1000 ML IV (15:10)
[2020-03-25] MEDS: Normal Saline Flush 10 ML SYR IVP (15:18)
[2020-03-25 15:22] LABS: Abs Immature Grans 0.02 10^3/uL (0.0-0.06); Absolute Basophil Count 0.04 10^3/uL (0.0-0.2); Absolute Eosinophil Count 0.14 10^3/uL (0.0-0.7); Absolute Lymphocyte Count 2.28 10^3/uL (1.2-3.4); Absolute Monocyte Count 0.69 10^3/uL (0.1-0.8); Absolute Neutrophil Count 5.28 10^3/uL (1.2-6.7); Basophils % 0.5; Eosinophils % 1.7; HCT 39.3 % (36.0-46.0); HGB 12.6 g/dL (11.2-15.7); Immature Grans % 0.2; MCH 27.6 pg (27.0-33.0); MCHC 32.1 % (32.0-36.0); MCV 86.2 fL (80-95); MPV 11.2 fL (8.0-11.0); Monocytes % 8.2; Neutrophils % 62.4; Nucleated RBC 0 %; Platelet Count 273 10^3/uL (130-400); RBC 4.56 10^6/uL (3.93-5.22); RDW 13.2 % (11.7-14.6); RDW-SD 41.3 fL; WBC 8.45 10^3/uL (4.4-10.8)
[2020-03-25 15:32] LABS: ALT 18 U/L (14-59); AST 17 U/L (15-37); Albumin 3.6 g/dL (3.4-5.0); Alkaline Phosphatase 42 U/L (46-116); Anion Gap 8.3 mmol/L (3-11); BUN 11 mg/dL (7-18); Bilirubin, Total 0.4 mg/dL (0.2-1.0); CO2 27.7 mmol/L (21.0-32.0); CREATININE 0.74 mg/dL (0.55-1.02); Calcium 8.3 mg/dL (8.5-10.1); Chloride 105 mmol/L (98-107); Glucose 83 mg/dL (74-106); Potassium 3.5 mmol/L (3.5-5.1); Sodium 141 mmol/L (136-145); Total Protein 6.9 g/dL (6.4-8.2)
[2020-03-25] MEDS: Ketorolac 15 MG/ML VIAL IVP (15:42)
--- NOTE | 2020-03-25 15:54 | DI.CT_ITS ---
EXAM: CT ABDOMEN PELVIS WO CLINICAL HISTORY: Right Flank pain, vomiting. TECHNIQUE: Images were performed from the lung bases through the ischial tuberosities without IV or oral contrast. Axial, sagittal and coronal reconstructions were performed for or performed. COMPARISON: CT RENAL COLIC WO CONTRAST from 07/05/2011 FINDINGS: ABDOMEN: Lung Bases: Normal where visualized. Liver: Normal density. No measurable mass. Gallbladder and biliary tract: No radiodense calculus or dilation. Pancreas: Normal density, no abnormal calcifications or inflammatory process. Spleen: Normal. Kidneys: Normal size, contour and axis. A few tiny nonobstructing stones are seen bilaterally. No ob structive uropathy. No masses seen. Adrenal glands: No masses seen. Lymph nodes: Within normal limits. Abdominal Aorta: Abdominal portion non-dilated. PELVIS: Bladder: Symmetric distention, no gross wall thickening. Bowel: No obstruction or bowel wall thickening. Normal appendix Peritoneal cavity: No ascites, collection or mesenteric inflammatory response. Reproductive organs: Within normal limits. Bones: Within normal limits. IMPRESSION: Tiny nonobstructing bilateral renal calculi. RADIATION DOSE DELIVERED: 482.93mGy.cm Total DLP DATA REPOSITORY: All CT scans at this facility are submitted to the National Radiology Data Registry (NRDR) Dose Index Registry (DIR) with the [employer] (A[employer]). RADIATION OPTIMIZATION: All CT scans at this facility use at least one of these dose optimization te chniques: automated exposure control; mA and/or kV adjustment per patient size (includes targeted exa ms where dose is matched to clinical indication); or iterative reconstruction.
--- NOTE | 2020-03-25 16:06 | NUR.NOTE ---
Nursing Note: Provider spoke with Felicitas Butler about patient. She is to follow up on . Referral faxed to [facility]rology. Debora Mar
[2020-03-25] MEDS: ACETAMINOPHEN 1,000 MG/100 ML BTL 400 MG IVPB (16:25)
[2020-03-25] MEDS: cefTRIAXone 1 GM/50 ML BAG IVPB (16:43)
--- NOTE | 2020-03-25 17:27 | NUR.NOTE ---
Nursing Note: 4mg morphine ordered by PA. Mixed with 10ml normal saline. During administration pt states she felt heavy and pain had resolved. 6ml of the syringe had been administered, a total of 2.4mg. The remaining 1.6mg was held, Prescriber made aware, and was wasted with JAYDEN Matamoros. Pt on the monitor, VSS, will continue to monitor.
--- NOTE | 2020-03-25 18:00 | RT.EKG_ITS ---
APPROVED REPORT Exam: Resting ECG Patient Location: E HR:49 bpm ECG Measurements Heart Rate 49 AXIS OK 145 P 67 QRSd 99 QRS 62 QT 448 T 49 QTc 406 Conclusion Sinus bradycardia...rate< 60
== END 2020-03-25 18:25 | disposition home or self-care (01) ==
PROVIDERS: Registered Nurse Emergency; Emergency Provider Physician Assistant; PCP Family Medicine
DX: N39.0 Urinary tract infection, site not specified (principal); N20.0 Calculus of kidney; R11.2 Nausea with vomiting, unspecified; R10.32 Left lower quadrant pain; Z87.440 Personal history of urinary (tract) infections
CPT/HCPCS: 36415; 80053; 81025; 93005; 96361; 96365; 96367; 96375; 99285; 74176; 81003; 81015; 85025; 87086; 93010; 99284; J0131; J0696; J1885

== ENCOUNTER 2020-04-13 10:33 | Emergency (ER) | payer MEDICAID, SELFPAY ==
[2020-04-13 10:40] VITALS: BP 113/61; PULSE 84; RESP 14; TEMP 36.4; O2SAT 99
[2020-04-13 10:44] LABS: Bilirubin Negative (Negative); Blood Trace-intact (Negative); Clarity Clear (Clear); Glucose Negative (Negative); Ketones Negative (Negative); Leukocyte Esterase Moderate (Negative); Nitrite Negative (Negative); Urobilinogen 0.2 EU/dL (Up TO 0.2); pH 7.5 (5-8)
[2020-04-13 11:03] LABS: Bacteria Few HPF (Negative); C & S Indicated? Yes; Casts Negative LPF (Negative); Crystals Negative HPF (Negative); Epithelial Cells Few HPF (Negative); Mucus Negative (Negative); RBC 0-2 HPF (0-2); WBC >50 HPF (0-5)
--- NOTE | 2020-04-13 11:04 | ED.GENADUL_ITS ---
Discharge Plan Disposition Patient Disposition: HOME Condition: Stable Discharge Details Chief Complaint: Urinary Clinical Impression: UTI (urinary tract infection) Primary Care Provider: Yojana Lemons ED Provider: Will Núñez Home Meds and New Rx's Prescriptions: New sulfamethoxazole-trimethoprim [Bactrim DS] 800-160 mg tablet 1 tab PO BID 7 Days Qty: 14 RF: 0 Continued venlafaxine [Effexor XR] 75 mg capsule,extended release 24hr 137 mg PO DAILY RF: 0 acetaminophen [Tylenol] 325 MG tablet 650 mg PO TWO DAILY PRN RF: 0 acetaminophen [Tylenol Extra Strength] 500 MG tablet 1,000 mg PO DAILY PRNRF: 0 hydroxyzine pamoate [Vistaril] 25 mg capsule 25 mg PO TID PRN (Reason: IC) Qty: 30 RF: 1 Discharge Instructions Instructions: Urinary Tract Infection in Women (ED) Additional Instructions: Bactrim as directed. Plenty of fluids. Dmhr-ssl-etpalph medications as directed for symptomatic control. Please watch for new or worsening symptoms and return to the ER for any concerns. Please contact your primary care provider on Tuesday for prompt outpatient reevaluation Medical Decision Making 25-year-old female who reports dysuria and urgency over the past 2 days, concerning for a urinary tract infection which feels the same as previous infection. She appears well, nontoxic. She is afebrile. Abdomen soft, nontender. Denies vaginal bleeding or discharge, no concern for STD. Will obtain urinalysis and test and reassess. POC negative. Urinalysis trace blood, moderate leuk esterase, greater than 50 white blood cells. Culture pending. Discussed findings with patient. Will initiate antibiotic therapy Medical Records Medical records reviewed: Yes I reviewed the patient's medical records. Lab Data Lab results reviewed: Yes I reviewed the patient's lab results. Lab results narrative: 04/13/20 10:35 Urine - Reflex from Ua Urine Culture - Pending Laboratory Tests Range/Units 04/13/20 10:35 Urine Color (Yellow) Yellow Urine Clarity (Clear) Clear Urine pH (5-8) 7.5 Ur Specific [place] (1.005-1.025) 1.020 Urine Protein (Negative) mg/dL Negative Urine Ketones (Negative) mg/dL Negative Urine Blood (Negative) Trace-intact H Urine Nitrite (Negative) Negative Urine Bilirubin (Negative) Negative Urine Urobilinogen (Up TO 0.2) EU/dL 0.2 Ur Leukocyte Esterase (Negative) Moderate H Urine RBC (0-2) HPF 0-2 Urine WBC (0-5) HPF >50 H Ur Epithelial Cells (Negative) HPF Few Urine Crystals (Negative) HPF Negative Urine Bacteria (Negative) HPF Few Urine Casts (Negative) LPF Negative Urine Mucus (Negative) Negative Ur Culture Indicated? Yes Urine Glucose (Negative) mg/dL Negative HPI General Mode of arrival: ambulatory . Date/Time Provider Initiated Documentation: 04/13/20 10:34 . Limitations to Documentation: no limitations . Information obtained by: patient . HPI Narrative: This is a 25-year-old female who reports history of interstitial cystitis, bilateral renal stones, anxiety, recurrent urinary tract infections, presenting to the ER concerned about UTI. She reports mild dysuria and frequency over the past 2 days. This feels very similar to previous urinary tract infection. She denies fever, chest pain, abdominal pain, nausea, vomiting, back pain, hematuria, vaginal bleeding or discharge. She is sexually active with one partner, reports that they use condoms, and she has no concern of STD. Related Data Home Medications Medication Instructions Recorded Confirmed acetaminophen [Tylenol] 650 mg PO TWO DAILY PRN tab-cap 08/29/13 04/13/20 acetaminophen [Tylenol Extra 1,000 mg PO DAILY PRN tab-cap 01/15/16 04/13/20 Strength] venlafaxine 75 mg capsule,extended 137 mg PO DAILY cap 11/08/18 04/13/20 release 24 hr hydroxyzine pamoate 25 mg capsule 25 mg PO TID PRN #30 cap 01/28/20 04/13/20 sulfamethoxazole-trimethoprim 1 tab PO BID 7 Days #14 tab 04/13/20 [Bactrim DS] Previous Rx's Medication Instructions Recorded hydroxyzine pamoate 25 mg capsule 25 mg PO TID PRN #30 cap 01/28/20 sulfamethoxazole-trimethoprim 1 tab PO BID 7 Days #14 tab 04/13/20 [Bactrim DS] Allergies Allergy/AdvReac Type Severity Reaction Status Date / Time house dust Allergy Mild Verified 03/25/20 14:31 ciprofloxacin [From Cipro] Allergy Unverified 04/13/20 10:44 No Known Drug Allergies Allergy none Unverified 03/25/20 14:31 General Stated Complaint: Urinary NEGIN: 3 Review of Systems Constitutional Constitutional: Denies fever(s) Gastrointestinal Gastrointestinal: Denies abdominal pain, Denies nausea and Denies vomiting Genitourinary Genitourinary: Denies abnormal vaginal bleeding, Denies hematuria, Reports dysuria and Reports urinary urgency Musculoskeletal Musculoskeletal: Denies back pain Integumentary/Breasts Skin/Breast: Denies rash [facility] Medical History Acne (Acute) ADD (attention deficit disorder) (Acute) Adjustment disorder (Acute) Anxiety (Chronic) Arthralgia (Acute) Asthma (Chronic) Butterfly rash (Acute) Contraception (Acute) Dental caries (Acute) Depression (Chronic) Dysphonia (Acute) Headache (Acute) History of recurrent UTIs (Acute) Panic attack (Acute) Previous known suicide attempt (Chronic) PTSD (post-traumatic stress disorder) (Acute) TBI (traumatic brain injury) (Acute) TMJ disease (Acute) Trichotillomania (Acute) Vesicoureteral reflux (Acute) Family History Mother Thyroid cancer Social History Smoking/Tobacco Use Status: Never Alcohol Intake: current Alcohol Intake frequency: holidays/special occasions only Drug use: Occasionally Substance use type: marijuana Do you feel safe at home: Yes Do you feel safe in your relationship?: Yes Female Reproductive History Menstrual control method: none History History 1 Para 0 Hx # Term Pregnancies Multiple births Hx # Pregnancies Ectopic pregnancies AB induced 1 Hx Number of Living Children AB spontaneous Exam Const General: cooperative, healthy appearing, comfortable and no acute distress Orientation: alert, awake and oriented x3 HENMT Head: normal to inspection, normocephalic and atraumatic Mouth: moist mucous membranes Eyes Conjunctivae: conjunctivae normal Sclera: sclerae normal Neck Neck: normal visual inspection, trachea midline and supple Resp Effort & Inspection: normal respiratory effort and able to speak in complete sentences Auscultation: clear to auscultation bilaterally Cardio Rate: regular rate Rhythm: regular rhythm GI Palpation: soft, not firm, no guarding and nontender Auscultation: normal bowel sounds Back/Spine/Pelvis Back: No back tenderness Skin General skin exam: no rashes or lesions noted Neuro General: patient alert, patient awake, moves all extremities and no focal motor deficits Sensory Exam: no sensory deficits noted Psych Appearance: grossly normal Mental Status: mental status grossly normal Course Vital Signs Vital signs: Vital Signs Temperature 36.4 C L 04/13/20 10:40 Pulse 84 04/13/20 10:40 Respiratory Rate 14 04/13/20 10:40 Blood Pressure 113/61 04/13/20 10:40 Pulse Oximetry 99 04/13/20 10:40 Temperature 36.4 C L 04/13/20 10:40 Temperature Source Tympanic 04/13/20 10:40 Pulse 84 04/13/20 10:40 Respiratory Rate 14 04/13/20 10:40 Respiratory Effort Non-Labored 04/13/20 10:42 Blood Pressure 113/61 04/13/20 10:40 Blood Pressure Position Sitting 04/13/20 10:40 Pulse Oximetry 99 04/13/20 10:40 Oxygen Delivery Method Room Air 04/13/20 10:40 Oxygen Flow Rate 0 04/13/20 10:40 Pain Level 5 04/13/20 10:42 Lab/Test Results Lab/Test Results: 04/13/20 10:35 Urine - Reflex from Ua Urine Culture - Pending Laboratory Tests Range/Units 04/13/20 10:35 Urine Color (Yellow) Yellow Urine Clarity (Clear) Clear Urine pH (5-8) 7.5 Ur Specific [place] (1.005-1.025) 1.020 Urine Protein (Negative) mg/dL Negative Urine Ketones (Negative) mg/dL Negative Urine Blood (Negative) Trace-intact H Urine Nitrite (Negative) Negative Urine Bilirubin (Negative) Negative Urine Urobilinogen (Up TO 0.2) EU/dL 0.2 Ur Leukocyte Esterase (Negative) Moderate H Urine RBC (0-2) HPF 0-2 Urine WBC (0-5) HPF >50 H Ur Epithelial Cells (Negative) HPF Few Urine Crystals (Negative) HPF Negative Urine Bacteria (Negative) HPF Few Urine Casts (Negative) LPF Negative Urine Mucus (Negative) Negative Ur Culture Indicated? Yes Urine Glucose (Negative) mg/dL Negative POC- Test(urine) Negative
[2020-04-13 11:15] VITALS: BP 113/61; PULSE 84; RESP 14; TEMP 36.4; O2SAT 99
== END 2020-04-13 11:14 | disposition home or self-care (01) ==
PROVIDERS: Emergency Provider Physician Assistant; PCP Family Medicine
DX: N39.0 Urinary tract infection, site not specified (principal); Z87.440 Personal history of urinary (tract) infections
CPT/HCPCS: 81025; 99283; 81003; 81015; 87086

== ENCOUNTER 2020-05-21 01:22 | Outpatient (CLI) | payer MEDICAID, SELFPAY ==
--- NOTE | 2020-05-21 08:30 | DI.US_ITS ---
EXAM: US SOFT TISS EXTREMITY/GROIN CLINICAL HISTORY: Left groin swelling.GROIN LUMP, R19.09. TECHNIQUE: Ultrasound was performed using standard protocol. COMPARISON: No exams were available for comparison FINDINGS: Sonographic assessment utilizing grayscale and color Doppler imaging was performed and targeted to th e area of clinical concern. 2.7 x 0.6 x 1.4 cm hypoechoic ovoid subcutaneous lesion corresponding to the palpable abnormality. T here is some internal blood flow. Mild posterior acoustic enhancement is noted. There does appear t o be a tract to the skin surface. An inflammatory or infectious process should be considered. Absce ss cannot be excluded. Biopsy and/or aspiration may be considered for further evaluation. IMPRESSION: DATA REPOSITORY:
== END 2020-05-21 01:42 ==
PROVIDERS: PCP Family Medicine; Visit Provider Obstetrics & Gynecology
DX: R19.09 Other intra-abdominal and pelvic swelling, mass and lump (principal)
CPT/HCPCS: 76882

== ENCOUNTER 2020-10-29 13:31 | Outpatient (REF) | payer MEDICAID, SELFPAY | END 2020-10-29 13:32 | disposition home or self-care (01) | LOC: LBN 13:31 | PROVIDERS: PCP Family Medicine; Visit Provider Nurse Practitioner Gerontology | DX: R30.0 Dysuria (principal); N30.10 Interstitial cystitis (chronic) without hematuria; N76.89 Other specified inflammation of vagina and vulva | CPT/HCPCS: 87086; 87480; 87510; 87660 ==

== ENCOUNTER 2020-11-20 17:34 | Outpatient (REF) | payer MEDICAID, SELFPAY ==
[2020-11-25 10:20] LABS: Chlamydia Result Negative (Negative); GC Result Negative (Negative)
== END 2020-11-20 17:35 | disposition home or self-care (01) ==
LOC: NCHCN 17:34
PROVIDERS: PCP Family Medicine; Visit Provider Physician Assistant Medical
DX: N39.0 Urinary tract infection, site not specified (principal)
CPT/HCPCS: 87077; 87491; 87591; 87086; 87186

== ENCOUNTER 2020-11-22 13:11 | Outpatient (REF) | payer MEDICAID, SELFPAY | END 2020-11-22 13:12 | disposition home or self-care (01) | LOC: NCHCN 13:11 | PROVIDERS: PCP Family Medicine; Visit Provider Physician Assistant Medical | DX: N72 Inflammatory disease of cervix uteri (principal) | CPT/HCPCS: 87480; 87510; 87660 ==

== ENCOUNTER 2021-01-01 14:51 | Outpatient (REF) | payer MEDICAID, SELFPAY | END 2021-01-01 14:52 | disposition home or self-care (01) | LOC: LBN 14:51 | PROVIDERS: PCP Family Medicine; Visit Provider Nurse Practitioner Gerontology | DX: N39.0 Urinary tract infection, site not specified (principal) | CPT/HCPCS: 87077; 87086; 87186 ==

== ENCOUNTER 2021-03-09 10:50 | Outpatient (REF) | payer MEDICAID, SELFPAY | END 2021-03-09 10:51 | disposition home or self-care (01) | LOC: LBN 10:50 | PROVIDERS: PCP Family Medicine; Visit Provider Nurse Practitioner Gerontology | DX: R30.0 Dysuria (principal) | CPT/HCPCS: 87077; 87086; 87186 ==

== ENCOUNTER 2021-05-05 14:47 | Outpatient (REF) | payer MEDICAID, SELFPAY | END 2021-05-05 14:48 | disposition home or self-care (01) | LOC: LBN 14:47 | PROVIDERS: PCP Family Medicine; Visit Provider Nurse Practitioner Gerontology | DX: N39.0 Urinary tract infection, site not specified (principal) | CPT/HCPCS: 87077; 87086; 87186 ==

== ENCOUNTER 2021-06-06 09:11 | Outpatient (REF) | payer MEDICAID, SELFPAY ==
[2021-06-08 13:04] LABS: COVID-19 RT-PCR UVMMC Result Negative (Negative)
== END 2021-06-06 09:12 | disposition home or self-care (01) ==
LOC: LBN 09:11
PROVIDERS: PCP Family Medicine; Visit Provider Nurse Practitioner Family
DX: Z20.822 Contact with and (suspected) exposure to COVID-19 (principal)
CPT/HCPCS: U0003

== ENCOUNTER 2021-06-27 15:58 | Outpatient (REF) | payer MEDICAID, SELFPAY ==
[2021-06-28 00:30] LABS: COVID-19 RT-PCR UVMMC Result Negative (Negative)
== END 2021-06-27 15:59 | disposition home or self-care (01) ==
LOC: LBN 15:58
PROVIDERS: PCP Family Medicine; Visit Provider Physician Assistant Medical
DX: Z20.822 Contact with and (suspected) exposure to COVID-19 (principal); J06.9 Acute upper respiratory infection, unspecified
CPT/HCPCS: U0003

== ENCOUNTER 2021-07-14 17:44 | Outpatient (REF) | payer MEDICAID, SELFPAY | END 2021-07-14 17:45 | disposition home or self-care (01) | LOC: LBN 17:44 | PROVIDERS: PCP Family Medicine; Visit Provider Nurse Practitioner Gerontology | DX: N39.0 Urinary tract infection, site not specified (principal) | CPT/HCPCS: 87077; 87086; 87186 ==

== ENCOUNTER 2021-08-06 12:08 | Outpatient (REF) | payer MEDICAID, SELFPAY | END 2021-08-06 12:09 | disposition home or self-care (01) | LOC: LBN 12:08 | PROVIDERS: PCP Family Medicine; Visit Provider Nurse Practitioner Gerontology | DX: N39.0 Urinary tract infection, site not specified (principal) | CPT/HCPCS: 87077; 87086; 87186 ==

== ENCOUNTER 2021-08-20 15:18 | Emergency (ER) | payer MEDICAID, SELFPAY ==
--- NOTE | 2021-08-20 16:00 | RT.EKG_ITS ---
APPROVED REPORT Exam: Resting ECG Reason for Exam: Bradycardia Patient Location: E HR:93 bpm ECG Measurements Heart Rate 93 AXIS DC 153 P 74 QRSd 93 QRS 21 QT 346 T 29 QTc 430 Conclusion Sinus rhythm...normal P axis, V-rate 60- 99 Physician: inverted t waves v1, v2, no stemi
[2021-08-20 16:07] VITALS: BP 118/80; PULSE 111; RESP 16; TEMP 37.1; O2SAT 97
[2021-08-20 16:19] LABS: Abs Immature Grans 0.02 10^3/uL (0.0-0.06); Absolute Basophil Count 0.05 10^3/uL (0.0-0.2); Absolute Eosinophil Count 0.04 10^3/uL (0.0-0.7); Absolute Lymphocyte Count 1.54 10^3/uL (1.2-3.4); Absolute Monocyte Count 0.39 10^3/uL (0.1-0.8); Absolute Neutrophil Count 5.03 10^3/uL (1.2-6.7); Basophils % 0.7; Eosinophils % 0.6; HCT 42.7 % (36.0-46.0); Immature Grans % 0.3; Lymphocytes % 21.8; MCH 28.6 pg (27.0-33.0); MCHC 32.8 % (32.0-36.0); MCV 87.1 fL (80-95); Monocytes % 5.5; Neutrophils % 71.1; Nucleated RBC 0 %; Platelet Count 244 10^3/uL (130-400); RDW 11.9 % (11.7-14.6); RDW-SD 38.5 fL; WBC 7.07 10^3/uL (4.4-10.8)
[2021-08-20 16:20] LABS: Bilirubin Negative (Negative); Blood Large (Negative); Clarity Cloudy (Clear); Glucose Negative (Negative); Ketones Trace mg/dL (Negative); Leukocyte Esterase Negative (Negative); Nitrite Negative (Negative); Urobilinogen 0.2 EU/dL (Up TO 0.2); pH 8.5 (5-8)
--- NOTE | 2021-08-20 16:25 | W.ED.GENAD ---
Discharge Plan Disposition Patient Disposition: HOME Condition: Stable Discharge Details Clinical Impression: Syncope Primary Care Provider: Yojana Lemons ED Provider: Crystal Rossi Home Meds and New Rx's Prescriptions: No Action diazepam [Valium] 5 mg tablet 5 mg PO TID PRN (Reason: pelvic pain) Qty: 10 RF: 0 topiramate 25 mg tablet 12.5 mg PO DAILY RF: 0 acetaminophen [Tylenol] 325 MG tablet 650 mg PO TWO DAILY PRN RF: 0 acetaminophen [Tylenol Extra Strength] 500 MG tablet 1,000 mg PO DAILY PRNRF: 0 nitrofurantoin macrocrystal 100 mg capsule 100 mg PO BID Qty: 14 RF: 0 Discharge Instructions Instructions: Syncope (ED) Additional Instructions: Toombs diet for next 24-48 hours. Lab work and EKG are all within normal limits. At this time it appears the legal episodes or fainting episode. Follow up with primary care provider in 3-5 days. Return to ED sooner if any worsening or concerns. Increase oral fluids. Referrals: Yojana Lemons MD [Primary Care Provider] - 5 days Discharge Data Discharge Date/Time-TO BE ENTERED AT DEPARTURE: 08/20/21 16:59 Medical Decision Making 26 year old female presents to ED with CC of abdominal pain after taking a spoon ful of hot sauce [employer]. Patient reports she was sitting on the toilet and had a syncopal episode. EMS reports on scene she was hypotesive and bradycardic with a rate of 44. They gave her some pain medication and atropine 1 mg. She denies CP, SOB, or any other c/o. Denies N/V/D. Hx of interstitial cystitis, Dysmenorrhea, She is cuurently on her menses which she reports is heavier than normal. EKG was reviewed by Dr. Hank Barber ER attending, please see his official report. Old EKG was available for review. CBC largely, CMP also largely within normal limits. Lipase within normal limits urinalysis shows trace ketones large blood 20-50 RBCs 20-50 WBCs patient is currently on her menses. Urine POC is negative. At this time my impression is was a syncopal episode. We will receive the rest of the normal saline and most likely discharge home. Patient discharged home with strict return instructions and follow-up care. Patient remained hemodynamically stable through the rest of her stay. This text was generated using Zoomoramaation system, please disregard any oddities of phrase or misspellings. HPI General Mode of arrival: EMS. Date/Time Provider Initiated Documentation: 08/20/21 15:27. Limitations to Documentation: no limitations. Information obtained by: patient, RN notes reviewed and old records reviewed. HPI Narrative: 26 year old female presents to ED with CC of abdominal pain after taking a spoon ful of hot sauce [employer]. Patient reports she was sitting on the toilet and had a syncopal episode. EMS reports on scene she was hypotesive and bradycardic with a rate of 44. They gave her some pain medication and atropine 1 mg. She denies CP, SOB, or any other c/o. Denies N/V/D. Hx of interstitial cystitis, Dysmenorrhea, She is cuurently on her menses which she reports is heavier than normal. Related Data Home Medications Medication Instructions Recorded Confirmed acetaminophen [Tylenol] 650 mg PO TWO DAILY PRN tab-cap 08/29/08/20/21 acetaminophen [Tylenol Extra 1,000 mg PO DAILY PRN tab-cap 01/15/16 08/20/21 Strength] topiramate 25 mg tablet 12.5 mg PO DAILY tab 07/09/20 08/20/21 diazepam 5 mg tablet 5 mg PO TID PRN #10 tab 07/14/21 08/20/21 nitrofurantoin macrocrystal 100 mg 100 mg PO BID #14 cap 08/13/21 08/20/21 capsule Previous Rx's Medication Instructions Recorded diazepam 5 mg tablet 5 mg PO TID PRN #10 tab 07/14/21 nitrofurantoin macrocrystal 100 mg 100 mg PO BID #14 cap 08/13/21 capsule Allergies Allergy/AdvReac Type Severity Reaction Status Date / Time house dust Allergy Mild Verified 05/05/21 11:01 ciprofloxacin [From Cipro] Allergy Verified 08/20/21 16:40 No Known Drug Allergies Allergy none Unverified 05/05/21 11:01 General Stated Complaint: Abd Prob NEGIN: 3 Review of Systems All systems reviewed & are unremarkable except as noted in HPI and below Constitutional Constitutional: Reports as per HPI and Denies chills Cardiovascular Cardiovascular: Reports syncope Gastrointestinal Gastrointestinal: Reports abdominal pain Neurologic Neurologic: Reports syncope [facility] All Active Problems (Updated 08/20/21 @ 16:42 by Crystal Rossi) Syncope (Chronic) Groin abscess (Acute) Dysmenorrhea (Acute) Groin lump (Acute) Ganglion cyst of left groin (Acute) Interstitial cystitis (Acute) 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) External tibial torsion (Acute) Dysphonia (Acute 08/05/14) Medical History Acne ADD (attention deficit disorder) Adjustment disorder Anxiety Arthralgia Asthma Butterfly rash Contraception Dental caries Depression Dysmenorrhea Dysphonia Ganglion cyst of left groin Groin abscess Groin lump Headache History of recurrent UTIs Panic attack Previous known suicide attempt PTSD (post-traumatic stress disorder) TBI (traumatic brain injury) TMJ disease Trichotillomania Vesicoureteral reflux Family History Mother Thyroid cancer Social History Smoking/Tobacco Use Status: Never Smoking risk assessment performed?: Yes Alcohol Intake: current Alcohol Intake frequency: holidays/special occasions only Drug use: Occasionally Substance use type: marijuana Do you feel safe at home: Yes Do you feel safe in your relationship?: Yes Female Reproductive History Menstrual control method: none History History 1 Para 0 Hx # Term Pregnancies Multiple births Hx # Pregnancies Ectopic pregnancies AB induced 1 Hx Number of Living Children AB spontaneous Exam Narrative Exam Narrative: Constitutional: Alert and oriented x3. Appears stated age. Normal body habitus. Head: Normocephalic, no trauma. Eyes: Pupils PERRL, Red reflex noted, EOM's intact. Eyelids symmetrical without lesions, discharge, or swelling. ENT: Bilateral TM's WNL, External ear normal to inspection, no mastoid TTP, swelling, or erythema, Nasal turbinates WNL, no nasal discharge. Normal dentition, Posterior pharynx WNL, no exudate. Chest: RRR, Normal S1, S2, distal pulses intact. Resp: Lungs clear to auscultation bilaterally, no wheezes, rales, or rhonchi. Abdomen: Soft, non-distended, Normoactive bowel sounds all 4 quads. Musculoskeletal: Normal gait, 5/5 strength to all four extremities. Skin: No suspicious rashes or lesions. Capillary refill less than 2 sec. Neurologic: Cranial nerves II-XII intact. Alert and oriented x 3. Motor: No deficits noted. Sensory: Intact bilaterally all 4 extremities. Reflexes: DTR's intact bilaterally.. Hematologic/Lymphatic: No ecchymosis, no lymphadenopathy. Course Vital Signs Vital signs: Vital Signs Temperature 37.1 C 08/20/21 16:07 Pulse 111 H 08/20/21 16:07 Respiratory Rate 16 08/20/21 16:07 Blood Pressure 118/80 08/20/21 16:07 Pulse Oximetry 97 08/20/21 16:07 Temperature 37.1 C 08/20/21 16:07 Temperature Source Skin 08/20/21 16:07 Pulse 111 H 08/20/21 16:07 Respiratory Rate 16 08/20/21 16:07 Blood Pressure 118/80 08/20/21 16:07 Blood Pressure Position Supine 08/20/21 16:07 Pulse Oximetry 97 08/20/21 16:07 Oxygen Delivery Method Room Air 08/20/21 16:07 Oxygen Flow Rate 0 08/20/21 16:07 Lab/Test Results Lab/Test Results: Laboratory Tests Range/Units 08/20/21 08/20/21 16:00 16:07 WBC (4.4-10.8) 10^3/uL 7.07 RBC (3.93-5.22) 10^6/uL 4.90 Hgb (11.2-15.7) g/dL 14.0 Hct (36.0-46.0) % 42.7 MCV (80-95) fL 87.1 MCH (27.0-33.0) pg 28.6 MCHC (32.0-36.0) % 32.8 RDW (11.7-14.6) % 11.9 Plt Count (130-400) 10^3/uL 244 MPV (8.0-11.0) fL 11.0 Immature Gran % 0.3 Neutrophils % 71.1 Lymphocytes % 21.8 Monocytes % 5.5 Eosinophils % 0.6 Basophils % 0.7 Nucleated RBC % % 0 Absolute Neutrophils (1.2-6.7) 10^3/uL 5.03 Absolute Lymphocytes (1.2-3.4) 10^3/uL 1.54 Absolute Monocytes (0.1-0.8) 10^3/uL 0.39 Absolute Eosinophils (0.0-0.7) 10^3/uL 0.04 Absolute Basophils (0.0-0.2) 10^3/uL 0.05 Urine Color (Yellow) Yellow Urine Clarity (Clear) Cloudy Urine pH (5-8) 8.5 H Ur Specific [place] (1.005-1.025) 1.020 Urine Protein (Negative) mg/dL 100 H Urine Ketones (Negative) mg/dL Trace H Urine Blood (Negative) Large H Urine Nitrite (Negative) Negative Urine Bilirubin (Negative) Negative Urine Urobilinogen (Up TO 0.2) EU/dL 0.2 Ur Leukocyte Esterase (Negative) Negative Urine Glucose (Negative) mg/dL Negative
[2021-08-20 16:26] LABS: ALT 14 U/L (14-59); AST 15 U/L (15-37); Albumin 4.3 g/dL (3.4-5.0); Alkaline Phosphatase 42 U/L (46-116); Anion Gap 10.6 mmol/L (3-11); BUN 14 mg/dL (7-18); Bilirubin, Total 0.5 mg/dL (0.2-1.0); CO2 25.4 mmol/L (21.0-32.0); CREATININE 0.8 mg/dL (0.55-1.02); Chloride 103 mmol/L (98-107); Glucose 92 mg/dL (74-106); Lipase 183 U/L (73-393); Potassium 3.6 mmol/L (3.5-5.1); Sodium 139 mmol/L (136-145)
[2021-08-20 16:29] LABS: Bacteria Many HPF (Negative); C & S Indicated? No/Sq. Contamination; Casts Negative LPF (Negative); Crystals Many Amorphous HPF (Negative); Epithelial Cells Many HPF (Negative); Mucus Heavy (Negative); RBC 20-50 HPF (0-2); WBC 20-50 HPF (0-5)
[2021-08-20] MEDS: Normal Saline 500 ML IV (16:40)
[2021-08-20 16:58] VITALS: BP 120/66; PULSE 99; RESP 16; TEMP 36.9; O2SAT 97
== END 2021-08-20 16:59 | disposition home or self-care (01) ==
LOC: ER 16:56
PROVIDERS: Student in an Organized Health Care Education/Training Program; Emergency Provider Registered Nurse Emergency; PCP Family Medicine
DX: R55 Syncope and collapse (principal); R00.1 Bradycardia, unspecified
CPT/HCPCS: 80053; 83690; 93005; 96360; 99284; 81003; 81015; 85025; 93010; 99283

== ENCOUNTER 2021-08-25 16:22 | Outpatient (REF) | payer MEDICAID, SELFPAY | END 2021-08-25 16:23 | disposition home or self-care (01) | LOC: LBN 16:22 | PROVIDERS: PCP Family Medicine; Visit Provider Nurse Practitioner Gerontology | DX: N39.0 Urinary tract infection, site not specified (principal) | CPT/HCPCS: 87086 ==

== ENCOUNTER 2021-11-19 15:55 | Outpatient (REF) | payer MEDICAID, SELFPAY ==
--- NOTE | 2021-11-19 15:30 | PAPFT_PTH ---
PATIENT: Yenni Falk LOC: N U#:[id number] AGE/SX: 26/F ROOM: RE11/19/[address]: Mitra Chu : 1995 BED: DIS: 11/19/2021 SPEC #: [id number] RECD: 11/19/21 17:34 STATUS: HALEY REQ #: [id number] FRANCIS: 11/19/21 15:[address]: Mitra Chu DEPT: [facility] Cytology RECD BY: Deirdre Carbajal ENTERED: 11/19/21 17:34 SP TYPE: PAPFT OTHR DR: Yojana Lemons Tissues: 1 - CX/ENDOCX FOR PAP SMEARS Procedures: PAP THIN PREP/[facility] Screening Comments: [id number] (UNSATISFACTORY FOR EVALUATION)
[2021-11-19 20:40] LABS: Bilirubin Negative (Negative); Blood Negative (Negative); Clarity Clear (Clear); Glucose Negative (Negative); Ketones Negative (Negative); Leukocyte Esterase Negative (Negative); Nitrite Negative (Negative); Specific Gravity 1.025 (1.005-1.025)
[2021-11-21 13:46] LABS: Chlamydia Result Negative (Negative); GC Result Negative (Negative)
== END 2021-11-19 15:56 | disposition home or self-care (01) ==
LOC: LBN 15:55
PROVIDERS: PCP Family Medicine; Visit Provider Physician Assistant
DX: R87.615 Unsatisfactory cytologic smear of cervix; N89.8 Other specified noninflammatory disorders of vagina; R30.0 Dysuria; R39.89 Other symptoms and signs involving the genitourinary system; Z11.3 Encounter for screening for infections with a predominantly sexual mode of transmission
CPT/HCPCS: 87491; 87591; 88142; 81003; 87480; 87510; 87660

== ENCOUNTER 2022-01-28 10:49 | Outpatient (REF) | payer MEDICAID, SELFPAY ==
[2022-01-28 15:39] LABS: Abs Immature Grans 0.04 10^3/uL (0.0-0.06); Absolute Basophil Count 0.04 10^3/uL (0.0-0.2); Absolute Eosinophil Count 0.01 10^3/uL (0.0-0.7); Absolute Lymphocyte Count 0.89 10^3/uL (1.2-3.4); Absolute Monocyte Count 0.74 10^3/uL (0.1-0.8); Absolute Neutrophil Count 11.18 10^3/uL (1.2-6.7); Basophils % 0.3; Eosinophils % 0.1; HCT 41.8 % (36.0-46.0); HGB 13.6 g/dL (11.2-15.7); Immature Grans % 0.3; Lymphocytes % 6.9; MCH 28.2 pg (27.0-33.0); MCHC 32.5 % (32.0-36.0); MCV 87 fL (80-95); MPV 12.2 fL (8.0-11.0); Monocytes % 5.7; Neutrophils % 86.7; Platelet Count 208 10^3/uL (130-400); RBC 4.83 10^6/uL (3.93-5.22); RDW 12.8 % (11.7-14.6); RDW-SD 40.6 fL
[2022-01-28 16:01] LABS: Anion Gap 11.6 mmol/L (3-11); BUN 8 mg/dL (7-18); CO2 24.4 mmol/L (21.0-32.0); CREATININE 0.8 mg/dL (0.55-1.02); Calcium 8.9 mg/dL (8.5-10.1); Chloride 99 mmol/L (98-107); Glucose 93 mg/dL (74-106); Potassium 3.8 mmol/L (3.5-5.1); Sodium 135 mmol/L (136-145)
[2022-01-28 16:05] LABS: Bilirubin Negative (Negative); Blood Negative (Negative); Clarity Clear (Clear); Glucose Negative (Negative); Ketones Negative (Negative); Leukocyte Esterase Negative (Negative); Nitrite Negative (Negative); Urobilinogen 0.2 EU/dL (Up TO 0.2); pH 7.5 (5-8)
[2022-01-30 12:08] LABS: COVID-19 RT-PCR UVMMC Result Negative (Negative)
== END 2022-01-28 10:50 | disposition home or self-care (01) ==
LOC: NCHCN 10:49
PROVIDERS: PCP Family Medicine; Visit Provider Family Medicine
DX: R50.9 Fever, unspecified (principal); N39.0 Urinary tract infection, site not specified; R10.9 Unspecified abdominal pain; R19.7 Diarrhea, unspecified; Z20.822 Contact with and (suspected) exposure to COVID-19
CPT/HCPCS: 80048; U0003; 81003; 85025

== ENCOUNTER → 2022-03-02 02:39 | Outpatient (CLI) | payer MEDICAID, SELFPAY ==
--- NOTE | 2022-03-02 07:45 | DI.MRI_ITS ---
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 COMPARISON: No exams were available for comparison FINDINGS: BONES/JOINTS: No fracture or contusion pattern. 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 There is mild edema seen in the accessory navicular. Mild degenerative changes are seen across the synchondrosis. There is insertion of the posterior tibialis tendon into the accessory navicular. This corresponds to the palpable area as identified by the marker. The talar dome is smooth. The ankle mortise is ma intained. No joint effusion is present. There is artifact seen in the distal tibia from and orthopedi c intramedullary mariella and screws. LIGAMENTS: The tibiofibular and calcaneofibular ligaments are intact. The talofibular ligaments are i ntact. The deltoid ligament is intact. The syndesmosis is unremarkable. Sinus tarsi is normal. MUSCULOTENDINOUS STRUCTURES: Achilles tendon: Unremarkable. Plantar fascia: Unremarkable. Anterior Extensor tendons: Unremarkable. Posterior Tibialis: Unremarkable. Inserts upon the accessory navicular. Flexor Digitorum longus: Unremarkable. Flexor Hallucis longus: Unremarkable. Peroneus longus: Unremarkable. Peroneus brevis:Unremarkable. SOFT TISSUES: Unremarkable. OTHER FINDINGS: None. IMPRESSION: 1. 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 There is insertion of the posterior tibialis tendon into the accessory navicular. 2. Mild degenerative changes are seen at the synchondrosis of the accessory navicular and the parent navicular bone. 3. No evidence of a tendon or ligament tear. 4. Artifact from the patient's intramedullary mariella in the distal tibia. 5. No evidence of an acute fracture or avascular necrosis. DATA REPOSITORY:
== END ==
PROVIDERS: PCP Family Medicine; Visit Provider Podiatrist Foot & Ankle Surgery
DX: M76.821 Posterior tibial tendinitis, right leg (principal); Q74.2 Other congenital malformations of lower limb(s), including pelvic girdle; M19.071 Primary osteoarthritis, right ankle and foot; Q78.8 Other specified osteochondrodysplasias
CPT/HCPCS: 73721

== ENCOUNTER 2022-06-23 18:35 | Outpatient (REF) | payer MEDICAID, SELFPAY | END 2022-06-23 18:36 | disposition home or self-care (01) | LOC: NCHCN 18:35 | PROVIDERS: PCP Family Medicine; Visit Provider Nurse Practitioner Family | DX: R30.0 Dysuria (principal); N30.10 Interstitial cystitis (chronic) without hematuria; L29.2 Pruritus vulvae | CPT/HCPCS: 87077; 87086; 87186; 87480; 87510; 87660 ==

== ENCOUNTER 2022-07-14 15:02 | Outpatient (REF) | payer MEDICAID, SELFPAY | END 2022-07-14 15:03 | disposition home or self-care (01) | LOC: LBN 15:02 | PROVIDERS: PCP Family Medicine; Visit Provider Nurse Practitioner Gerontology | DX: N39.0 Urinary tract infection, site not specified (principal) | CPT/HCPCS: 87077; 87086; 87186 ==

== ENCOUNTER 2022-10-11 17:19 | Outpatient (REF) | payer MEDICAID, SELFPAY ==
[2022-10-11 15:02] LABS: Source Nasal/Nares
[2022-10-11 16:00] LABS: COVID-19 PCR Negative (Negative)
== END 2022-10-11 17:20 | disposition home or self-care (01) ==
LOC: LBN 17:19
PROVIDERS: PCP Family Medicine; Visit Provider Obstetrics & Gynecology
DX: Z20.822 Contact with and (suspected) exposure to COVID-19 (principal); Z01.818 Encounter for other preprocedural examination
CPT/HCPCS: 87635

== ENCOUNTER 2022-10-13 07:09 | Day surgery (SDC) | payer MEDICAID, SELFPAY ==
[2022-10-13] VITALS (8 sets, daily range): BP systolic 100–116; BP diastolic 51–72; PULSE 50–69; RESP 14–28; TEMP 36.4–36.6; O2SAT 95–100; BMI 23.8
[2022-10-13] MEDS: Lactated Ringers 1,000 ML 125 ML IV (07:41)
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
--- NOTE | 2022-10-13 09:10 | PAPFT_PTH ---
PATIENT: Yenni Falk LOC: [facility] U#:[id number] AGE/SX: 27/F ROOM: RE10/13/[address]: Tenisha Guevara DO : 1995 BED: DIS: 10/13/2022 SPEC #: [id number] RECD: 10/13/22 12:56 STATUS: HALEY REQ #: [id number] FRANCIS: 10/13/22 09:[address]: Tenisha Guevara DEPT: [facility] Cytology RECD BY: Deirdre Carbajal ENTERED: 10/13/22 12:56 SP TYPE: PAPFT OTHR DR: Yojana Lemons Tissues: 1 - CX/ENDOCX FOR PAP SMEARS Procedures: PAP THIN PREP/[facility] Screening Comments: [id number] (CHLAMYDIA/GC)
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
[2022-10-13] MEDS: Midazolam 2 MG/2 ML VIAL (09:50)
--- NOTE | 2022-10-13 10:56 | W.ANESPOSTOP ---
Postoperative Evaluation Date, Time and Location Date Performed: 10/13/22 Time Performed: 10:56 Patient Location: Day Surgery Unit Vital Signs Most Recent Imported Vital Signs: Most Recent Vital Signs Temp Pulse Resp BP Pulse Ox 36.4 C L 52 L 14 104/63 100 10/13/22 10:15 10/13/22 10:15 10/13/22 10:15 10/13/22 10:15 10/13/22 10:15 Pain Score Most Recent Pain Score: Most Recent Pain Score Pain Level 0 10/13/22 10:15 Assessment Mental Status: Arousable with meaningful communication Airway and Respiratory Function: Patent airway with normal (patient baseline) respiratory exam Cardiovascular Function: Hemodynamically Stable Hydration Status: Adequately Hydrated Nausea & Vomiting: No Nausea or Vomiting Pain: Pt. Denies Any Pain Peripheral Nerve Block: Patient did not receive a nerve block
[2022-10-14 15:16] LABS: Chlamydia Result Negative (Negative); GC Result Negative (Negative)
== END 2022-10-13 11:20 | disposition home or self-care (01) ==
PROVIDERS: PCP Family Medicine; Visit Provider Obstetrics & Gynecology
PROC: (CPT 57410; principal; 2022-10-13 09:00)
PROC: (CPT 57410; 2022-10-13 09:00)
DX: Z30.014 Encounter for initial prescription of intrauterine contraceptive device (principal); Z12.4 Encounter for screening for malignant neoplasm of cervix
CPT/HCPCS: 57410; 58300; 00940; 81025; 87491; 87591; 88142; J1885; J2250

== ENCOUNTER 2022-12-17 17:36 | Outpatient (REF) | payer MEDICAID, SELFPAY ==
[2022-12-17 19:02] LABS: Bilirubin Negative (Negative); Blood Negative (Negative); Clarity Cloudy (Clear); Glucose Negative (Negative); Ketones Negative (Negative); Leukocyte Esterase Negative (Negative); Nitrite Positive (Negative); Urobilinogen 0.2 mg/dL (Up to 0.2)
[2022-12-17 19:08] LABS: Bacteria Many HPF (Negative); C & S Indicated? Yes; Casts Negative LPF (Negative); Crystals Negative HPF (Negative); Epithelial Cells Few HPF (Negative); Mucus Negative (Negative); RBC 0-2 HPF (0-2)
== END 2022-12-17 17:37 | disposition home or self-care (01) ==
LOC: NCHCN 17:36
PROVIDERS: PCP Family Medicine; Visit Provider Family Medicine
DX: N39.0 Urinary tract infection, site not specified (principal)
CPT/HCPCS: 87077; 81003; 81015; 87086; 87186

== ENCOUNTER 2023-01-10 13:10 | Outpatient (REF) | payer MEDICAID, SELFPAY ==
[2023-01-10 16:53] LABS: Bilirubin Small (Negative); Blood Negative (Negative); Clarity Turbid (Clear); Glucose Negative (Negative); Ketones Negative (Negative); Leukocyte Esterase Negative (Negative); Nitrite Negative (Negative); Specific Gravity 1.025 (1.005-1.025)
[2023-01-10 17:33] LABS: Bacteria Rare HPF (Negative); Crystals Many Amorphous HPF (Negative); Epithelial Cells Rare HPF (Negative); Mucus Trace (Negative); RBC 0-2 HPF (0-2); WBC 0-2 HPF (0-5)
[2023-01-10 17:34] LABS: C & S Indicated? No; Casts Negative LPF (Negative)
== END 2023-01-10 13:11 | disposition home or self-care (01) ==
LOC: NCHCN 13:10
PROVIDERS: PCP Family Medicine; Visit Provider Family Medicine
DX: N39.0 Urinary tract infection, site not specified (principal); Z87.440 Personal history of urinary (tract) infections
CPT/HCPCS: 81003; 81015

== ENCOUNTER 2023-03-08 17:08 | Outpatient (REF) | payer MEDICAID, SELFPAY | END 2023-03-08 17:09 | disposition home or self-care (01) | LOC: LBN 17:08 | PROVIDERS: PCP Family Medicine; Visit Provider Nurse Practitioner Family | DX: R30.0 Dysuria (principal); B96.29 Other Escherichia coli [E. coli] as the cause of diseases classified elsewhere | CPT/HCPCS: 87077; 87086; 87186; 87480; 87510; 87660 ==

== ENCOUNTER 2023-05-10 14:24 | Outpatient (REF) | payer MEDICAID, SELFPAY | END 2023-05-10 14:25 | disposition home or self-care (01) | LOC: LBN 14:24 | PROVIDERS: PCP Family Medicine; Visit Provider Nurse Practitioner Women's Health | DX: N76.0 Acute vaginitis (principal); R30.0 Dysuria; R82.79 Other abnormal findings on microbiological examination of urine | CPT/HCPCS: 87077; 87086; 87186; 87480; 87510; 87660 ==

== ENCOUNTER 2023-11-21 11:01 | Outpatient (REF) | payer MEDICAID, SELFPAY | END 2023-11-21 11:02 | disposition home or self-care (01) | LOC: LBN 11:01 | PROVIDERS: PCP Family Medicine; Visit Provider Nurse Practitioner Women's Health | DX: N76.0 Acute vaginitis (principal) | CPT/HCPCS: 87480; 87510; 87660 ==

== ENCOUNTER 2024-01-23 21:33 | Outpatient (REF) | payer MEDICAID, SELFPAY | END 2024-01-23 21:34 | disposition home or self-care (01) | LOC: LBN 21:33 | PROVIDERS: PCP Family Medicine; Visit Provider Nurse Practitioner Family | DX: R30.0 Dysuria (principal); N76.0 Acute vaginitis; R82.89 Other abnormal findings on cytological and histological examination of urine | CPT/HCPCS: 87086; 87480; 87510; 87660 ==

== ENCOUNTER 2024-10-05 20:55 | Outpatient (REF) | payer MEDICAID, SELFPAY ==
[2024-10-05 21:17] LABS: Bacteria Moderate HPF (Negative); C & S Indicated? C&S Done As Ordered; Crystals Many Amorphous HPF (Negative); Epithelial Cells Rare HPF (Negative); Mucus Moderate (Negative); RBC Negative HPF (0-2); WBC 20-50 HPF (0-5)
== END 2024-10-05 20:56 | disposition home or self-care (01) ==
LOC: LBN 20:55
PROVIDERS: PCP Family Medicine; Visit Provider Physician Assistant Medical
DX: R30.0 Dysuria (principal)
CPT/HCPCS: 87077; 81015; 87086; 87186; 87480; 87510; 87660

== ENCOUNTER 2024-12-06 20:57 | Outpatient (REF) | payer MEDICAID, SELFPAY ==
[2024-12-06 22:01] LABS: Bacteria Moderate HPF (Negative); C & S Indicated? C&S Done As Ordered; Crystals Negative HPF (Negative); Epithelial Cells Negative HPF (Negative); Mucus Negative (Negative); RBC 0-2 HPF (0-2)
[2024-12-07 18:50] LABS: HIV-1/2 Ag & Ab Screen Negative (Negative)
[2024-12-07 20:25] LABS: Hepatitis C Ab w Rflx HCV PCR Negative (Negative)
[2024-12-10 11:07] LABS: Syphilis Serology (RPR) Negative (Negative)
[2024-12-10 12:29] LABS: Chlamydia Result Negative (Negative); GC Result Negative (Negative)
== END 2024-12-06 20:58 | disposition home or self-care (01) ==
LOC: LBN 20:57
PROVIDERS: PCP Family Medicine; Visit Provider Physician Assistant Medical
DX: R30.0 Dysuria (principal); Z11.3 Encounter for screening for infections with a predominantly sexual mode of transmission
CPT/HCPCS: 86803; 87077; 87389; 87491; 87591; 81015; 86592; 87086; 87186; 87480; 87510; 87660

== ENCOUNTER 2025-01-07 12:17 | Outpatient (CLI) | payer MEDICAID, SELFPAY ==
--- NOTE | 2025-01-07 | DI.US_ITS ---
Exam(s) US OB 1ST TRIMESTER EXAM: US OB 1ST TRIMESTER CLINICAL HISTORY: LLQ PAIN,+PREG TEST,IUD RECENTLY EXPELLED. TECHNIQUE: Transabdominal and transvaginal pelvic ultrasound was performed using standard protocol. COMPARISON: US PELVIS TRANSVAG from 08/28/2013 FINDINGS: UTERUS: Position: Anteverted. Size: 7.1 long by 4.7 AP by 5.0 transverse cm Endometrium: 0.8 cm. There is a 3 mm cystic structure in the fundal endometrium. This may represent an early intrauterine gestational sac. Myometrium: There is a 0.9 x 0.7 x 0.9 cm slightly hypoechoic myometrial mass in the posterior fundus likely reflecting small fibroid. Cervix: Unremarkable. OVARIES: Right: 3.3 x 2.0 x 2.8 cm Cyst or mass: No suspicious cystic or solid masses. There is a 2.5 cm hemorrhagic cyst on the right ovary which may represent a corpus luteal cyst. Left: 3.2 x 1.1 x 1.5 cm Cyst or mass: No suspicious cystic or solid masses. DOPPLER: Color: Symmetric and uniform flow to both ovaries. CUL-DE-SAC: Free fluid: None. Other: None. IMPRESSION: 1. 3 mm cystic structure in the fundal endometrium. This may represent an early gestational sac. Fo llow-up with beta HCG levels and a repeat obstetrical ultrasound is recommended. 2. 2.5 cm right corpus luteal cyst. 3. 0.9 cm posterior fundal uterine fibroid. DATA REPOSITORY:
== END 2025-01-07 12:37 ==
PROVIDERS: PCP Family Medicine; Visit Provider Nurse Practitioner Family
DX: Z32.01 Encounter for pregnancy test, result positive (principal); R10.32 Left lower quadrant pain
CPT/HCPCS: 76801

== ENCOUNTER 2025-01-29 15:21 | Outpatient (REF) | payer MEDICAID, SELFPAY | END 2025-01-29 15:22 | disposition home or self-care (01) | LOC: LBN 15:21 | PROVIDERS: PCP Family Medicine; Visit Provider Obstetrics & Gynecology | DX: R30.0 Dysuria (principal) | CPT/HCPCS: 87077; 87086; 87186 ==

== ENCOUNTER 2025-02-20 02:49 | Outpatient (CLI) | payer MEDICAID, SELFPAY ==
[2025-02-20 14:50] LABS: Abs Immature Grans 0.05 10^3/uL (0.0-0.06); HCT 36.0 % (36.0-46.0); HGB 12.1 g/dL (11.2-15.7); Immature Grans % 0.5 %; MCH 29.0 pg (27.0-33.0); MCHC 33.6 % (32.0-36.0); MCV 86 fL (80-95); MPV 10.6 fL (8.0-11.0); Platelet Count 255 10^3/uL (130-400); RBC 4.17 10^6/uL (3.93-5.22); RDW 12.8 % (11.7-14.6); RDW-SD 40.7 fL; WBC 11.09 10^3/uL (4.4-10.8)
[2025-02-20 15:25] LABS: TSH (W/Ref FT4) 0.88 uIU/mL (0.36-3.74)
[2025-02-20 23:29] LABS: Hepatitis C Ab w Rflx HCV PCR Negative (Negative)
[2025-02-20 23:32] LABS: HIV-1/2 Ag & Ab Screen Negative (Negative)
[2025-02-21 11:08] LABS: Rubella IgG Ab (UVM) Positive (See Note)
[2025-02-22 19:54] LABS: Syphilis IgG w/Reflex Nonreactive (Nonreactive)
== END 2025-02-20 02:50 | disposition home or self-care (01) ==
LOC: LBO 02:49
PROVIDERS: Advanced Practice Midwife; PCP Family Medicine; Visit Provider Advanced Practice Midwife
DX: Z34.91 Encounter for supervision of normal pregnancy, unspecified, first trimester (principal)
CPT/HCPCS: 36415; 80307; 80348; 81220; 81222; 86787; 86803; 86850; 86900; 86901; 87340; 87389; 87491; 87591; 84443; 85025; 86762; 86780; 87086

== ENCOUNTER 2025-02-20 14:42 | Outpatient (REF) | payer MEDICAID, SELFPAY ==
[2025-02-20 15:50] LABS: Cannabinoids THC Negative (Negative); METHADONE URINE SCREEN Negative (Negative)
[2025-02-21 11:26] LABS: Fentanyl Scr w/Rfx Confirm Negative ng/mL (<1)
[2025-02-21 11:36] LABS: Chlamydia Result Negative (Negative); GC Result Negative (Negative)
== END 2025-02-20 14:43 | disposition home or self-care (01) ==
LOC: LBN 14:42
PROVIDERS: Advanced Practice Midwife; PCP Family Medicine; Visit Provider Advanced Practice Midwife
DX: Z34.01 Encounter for supervision of normal first pregnancy, first trimester (principal)
CPT/HCPCS: 80307; 80348; 87491; 87591; 87086

== ENCOUNTER 2025-03-20 09:53 | Outpatient (REF) | payer MEDICAID, SELFPAY | END 2025-03-20 09:54 | disposition home or self-care (01) | LOC: LBN 09:53 | PROVIDERS: PCP Family Medicine; Visit Provider Advanced Practice Midwife | DX: Z34.91 Encounter for supervision of normal pregnancy, unspecified, first trimester (principal) | CPT/HCPCS: 87086 ==

== ENCOUNTER 2025-04-17 02:37 | Outpatient (CLI) | payer MEDICAID, SELFPAY ==
--- NOTE | 2025-04-17 05:00 | DI.US_ITS ---
Exam(s) US OB 2-3 TRIMESTER EXAM: US OB 2-3 TRIMESTER CLINICAL HISTORY: Anatomy Survey,z34.91. TECHNIQUE: Transabdominal obstetrical ultrasound performed. COMPARISON: US POCUS EXAM from 01/29/2025 FINDINGS: Number of fetuses: 1 position: VARIED Placental location: POSTERIOR No evidence of previa. BIOMETRIC DATA: BPD: 4.59cm mm, 19weeks 6days weeks HC: 17.3cm mm, 19weeks 6days weeks AC: 14.02cm mm, 19weeks 3days weeks FL: 2.91cm mm, 19weeks weeks Cisterna magna: 4mm mm Cerebellum: 1.84cm cm Lateral ventricle: Mm EFW: 283.71g grams, 71.1% % Composite Age: 19weeks 4days weeks PAKO: 09/07/2025 Heart Rate: 143bpm BPM Amniotic fluid: Amount of fluid is visually within normal limits. ANATOMICAL SURVEY: Four-chambered heart: Unremarkable. LVOT: Unremarkable. RVOT: Unremarkable. Left-sided stomach: Unremarkable. urinary bladder: Unremarkable. Bilateral kidneys: Unremarkable. Three-vessel cord: Unremarkable. Cord insertion: Unremarkable. Posterior fossa:Unremarkable. ventricles: Unremarkable. nose: Unremarkable. lips: Unremarkable. palate: Unremarkable. spine: Unremarkable. Two arms and two legs: Unremarkable. IMPRESSION: 1. Single live intrauterine gestation with composite age of 19 weeks 4 days 2. Normal anatomic survey. DATA REPOSITORY:
== END 2025-04-17 02:57 ==
PROVIDERS: PCP Family Medicine; Visit Provider Advanced Practice Midwife
DX: Z34.92 Encounter for supervision of normal pregnancy, unspecified, second trimester (principal); Z3A.19 19 weeks gestation of pregnancy
CPT/HCPCS: 76805

== ENCOUNTER 2025-04-20 22:42 | Observation (INO) | payer MEDICAID, SELFPAY ==
[2025-04-20 22:46] VITALS: BP 118/56; PULSE 78; RESP 16; TEMP 36.1; O2SAT 95
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
[2025-04-20 23:21] LABS: Glucose Negative (Negative)
[2025-04-21 00:18] VITALS: BP 118/56; PULSE 78; RESP 16; TEMP 36.1; O2SAT 95
[2025-04-21 00:30] VITALS: BP 103/71; PULSE 76; TEMP 36.7
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
[2025-04-21 01:07] VITALS: BP 103/71; PULSE 76; RESP 20; TEMP 36.7
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
== END 2025-04-21 15:44 | disposition home or self-care (01) ==
LOC: ER 04-21 → BCD 04-21 00:12 → OBS 04-21 00:15 → BCD 04-21 03:43 → OBS 04-21 03:43
PROVIDERS: Admitting Provider Obstetrics & Gynecology; Emergency Provider Student in an Organized Health Care Education/Training Program; PCP Family Medicine; Visit Provider Obstetrics & Gynecology
DX: O20.8 Other hemorrhage in early pregnancy (principal); Z62.810 Personal history of physical and sexual abuse in childhood; F41.0 Panic disorder [episodic paroxysmal anxiety]; F32.A Depression, unspecified; Z3A.19 19 weeks gestation of pregnancy; O99.352 Diseases of the nervous system complicating pregnancy, second trimester; G43.909 Migraine, unspecified, not intractable, without status migrainosus; O21.9 Vomiting of pregnancy, unspecified; O99.512 Diseases of the respiratory system complicating pregnancy, second trimester; J45.909 Unspecified asthma, uncomplicated; R45.851 Suicidal ideations; F43.0 Acute stress reaction; N89.8 Other specified noninflammatory disorders of vagina
CPT/HCPCS: 99285; 81003; 87480; 87510; 87660; G0378

== ENCOUNTER 2025-05-30 09:59 | Outpatient (CLI) | payer MEDICAID, SELFPAY ==
[2025-05-30] VITALS (14 sets, daily range): BP systolic 120; BP diastolic 59; PULSE 73–92; TEMP 36.4; O2SAT 96–98
[2025-05-30] MEDS: Ondansetron O.D.T. 4 MG TABEF PO (13:01)
[2025-05-30 14:00] LABS: Glucose Negative (Negative)
--- NOTE | 2025-05-30 14:03 | W.OBNST ---
Date of service: 05/30/25 Time of Service: 14:03 NST Evaluation Reason for NST Reasons for Nonstress Test: OTHER, SEE COMMENT Reason for NST Other: Cramping and nausa Gestational Age Gestational Age in Weeks and Days: 25 Weeks and 0Days Test and Monitor Explained Test/Monitor Explained: Test Explained and Monitor Explained Vital Signs Blood Pressure: 120/59 Pulse: 82 Temperature: 97.5 F Weight: 131 lb Urine Results Urine Protein: Negative Urine Ketones: Negative Urine Glucose: Negative Urine Blood: Negative NST Information Time on Monitor: 12:20 Date off Monitor: 05/30/25 Time off Monitor: 12:46 NST Interventions: None NST Evaluation Patient States Movement: Present FHR Baseline: 145 Variability: Moderate 6-25 bpm Decelerations: None Note Ultrasound Done: N/A. NST Note Note: Yenni called and reported nausea and some abdominal cramping. She left work today due to symptoms. mild uterine irritability . She denies vaginal discharge. Vaginal pathogen screen neg during admission last month. her partner reports that he experienced nausea and vomiting recently. She was given ondansetron 4 mg PO ODT and she was able to drink water and eat lunch without vomiting. She was encouraged to rest and drink fluids today and to stay home from work tomorrow if she was not feeling better. Call with concerns. urine dip shows trace blood and large leukocytes. Await culture results if indicated. NST Reviewed and Verified by: Sadia Martinez
[2025-05-30 14:10] LABS: C & S Indicated? Yes; WBC >50 HPF (0-5)
== END 2025-05-30 13:50 ==
LOC: BCD 09:59 → OBS 10:10 → BCD 12:07 → OBS 12:08
PROVIDERS: PCP Family Medicine; Visit Provider Advanced Practice Midwife
DX: O99.891 Other specified diseases and conditions complicating pregnancy (principal); R11.2 Nausea with vomiting, unspecified; R10.9 Unspecified abdominal pain; Z3A.25 25 weeks gestation of pregnancy
CPT/HCPCS: 59025; 81003; 81015; 87086

== ENCOUNTER 2025-06-22 18:08 | Observation (INO) | payer MEDICAID, SELFPAY ==
[2025-06-22 16:21] VITALS: BP 109/67; PULSE 111; TEMP 37.1
[2025-06-22 16:23] VITALS: BP 109/67; PULSE 111
[2025-06-22] MEDS: Pantoprazole 40 MG VIAL IVP (17:02)
[2025-06-22] MEDS: Metoclopramide 10 MG/2 ML VIAL 5 MG IVP ×2 (17:03→20:57)
[2025-06-22] MEDS: DEXTROSE 5%-LACTATED RINGERS 1,000 ML 999 ML IV (17:20)
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
[2025-06-22 18:39] LABS: Abs Immature Grans 0.20 10^3/uL (0.0-0.06); HCT 29.9 % (36.0-46.0); HGB 10.1 g/dL (11.2-15.7); Immature Grans % 2.1 %; MCH 29.2 pg (27.0-33.0); MCHC 33.8 % (32.0-36.0); MCV 86 fL (80-95); MPV 10.4 fL (8.0-11.0); Platelet Count 184 10^3/uL (130-400); RBC 3.46 10^6/uL (3.93-5.22); RDW 12.3 % (11.7-14.6); RDW-SD 39.0 fL; WBC 9.41 10^3/uL (4.4-10.8)
[2025-06-22 18:41] LABS: Glucose 500 mg/dL (Negative)
[2025-06-22 19:02] LABS: RBC 0-2 HPF (0-2)
[2025-06-22 19:13] VITALS: BP 112/74; PULSE 114; RESP 18; TEMP 37.4; O2SAT 97
[2025-06-22 19:25] VITALS: BP 109/67; PULSE 111; TEMP 37.1
--- NOTE | 2025-06-22 19:25 | W.OBNST ---
Date of service: 06/22/25 Time of Service: 19:25 NST Evaluation Reason for NST Reasons for Nonstress Test: LABOR Reason for NST Other: Nausea and vomiting for 24 hours Gestational Age Gestational Age in Weeks and Days: 28 Weeks and 2Days Test and Monitor Explained Test/Monitor Explained: Test Explained Vital Signs Blood Pressure: 109/67 Pulse: 111 Temperature: 98.7 F Urine Results Urine Protein: Positive Urine Ketones: Positive Urine Glucose: Negative Urine Blood: Negative NST Information Date on Monitor: 06/22/25 Time on Monitor: 16:20 Date off Monitor: 06/22/25 Time off Monitor: 17:30 Total Time on Monitor: 70 NST Interventions: IV Fluids Contraction Frequency: 0 NST Evaluation Patient States Movement: Present FHR Baseline: 145 Variability: Moderate 6-25 bpm Accelerations: 15x15 Decelerations: None NST Results: Reactive Note Ultrasound Done: N/A. NST Note NST Reviewed and Verified by: Alexus Garcia
[2025-06-22] MEDS: Ondansetron 4 MG/2 ML VIAL 8 MG IVP (19:35)
[2025-06-22] MEDS: cefTRIAXone 1 GM/50 ML BAG IVPB (19:42)
[2025-06-22 20:02] VITALS: BP 112/74; PULSE 114; RESP 18; TEMP 37.4; O2SAT 97
[2025-06-22] MEDS: Lactated Ringers 1,000 ML 250 ML IV (21:00)
[2025-06-22 23:32] VITALS: RESP 16; TEMP 36.9
[2025-06-23] MEDS: Metoclopramide 10 MG/2 ML VIAL 5 MG IVP ×2 (01:01→09:20)
[2025-06-23] MEDS: Lactated Ringers 1,000 ML 125 ML IV (01:05)
[2025-06-23 05:12] VITALS: BP 95/54; PULSE 84; RESP 18; TEMP 36.6
[2025-06-23 08:21] VITALS: BP 98/60; PULSE 80; RESP 12; TEMP 36.8; O2SAT 98
--- NOTE | 2025-06-23 08:47 | PGE_ITS ---
Date of Service Date of service: 06/23/25 Time of Service: 08:47 Assessment and Plan Assessment and plan (1) Dehydration during : Status: Acute Assessment and plan: Continue I&O, dip for ketones until cleared Slow advance BRAT diet today Currently 5th liter (since admission) of LR IV infusing Will continue LR per IV & decrease to 125 ml/hr when taking oral fluids well (2) Viral syndrome: Status: Acute Assessment and plan: Reglan 5 mg IVP prn q4 hrs Ondansetron 8 mg IVP prn q8 hrs Repeat Protonix 40 mg IVPB 24 hrs after last dose Pt states passing flatus, denies abd pain, nausea is slight and intermittent Expect discharge to home this evening, already has anti-emetic meds at home (Zofran & Reglan) Will Rx ant-acid omeprazole 20 mg daily (3) Urinary tract infection affecting care of mother in third trimester, antepartum: Status: Acute Assessment and plan: Left CVAT remains present though very mild Urine output per I&O is adequate Pt remains afebrile and vital signs are stable Will receive 2nd dose ceftriaxone 1 gm IVP at 24 hrs after previous dose Anticipate discharge to home with Rx for MacroBid 100 mg PO BID Urine C&S is pending (4) 28 weeks gestation of : Status: Acute Assessment and plan: NST for this morning Noted Hgb last night @ 10.7, Will recheck hgb this morning, consider iron infusion if <11 Subjective Subjective Interval history since last seen: Pt states she is feeling much better. Nausea is nearly completely gone and heartburn has stopped, has eaten a light breakfast of Vietnamese muffin and gingerale without emesis. Slept fairly well through the night without sleep medication, pain in midback has improved and denies abdominal cramps or pain. movement is appreciated though less than she expects. Objective Last Vital Signs Temp 98.2 F 06/23/25 08:21 Pulse 80 06/23/25 08:21 Resp 12 06/23/25 08:21 BP 98/60 L 06/23/25 08:21 Pulse Ox 98 06/23/25 08:21 Laboratory Results - last 24 hr 06/22/25 06/22/25 18:00 18:25 WBC 9.41 RBC 3.46 L Hgb 10.1 L Hct 29.9 L MCV 86 MCH 29.2 MCHC 33.8 RDW 12.3 Plt Count 184 MPV 10.4 Immature Gran % 2.1 Neutrophils % 89.2 Lymphocytes % 6.1 Monocytes % 2.4 Eosinophils % 0.0 Basophils % 0.2 Nucleated RBC % 0.0 Absolute Neutrophils 8.39 H Absolute Lymphocytes 0.57 L Absolute Monocytes 0.23 Absolute Eosinophils 0.00 Absolute Basophils 0.02 Urine Color Yellow Urine Clarity Clear Urine pH 7.0 Ur Specific [place] 1.015 Urine Protein Negative Urine Ketones 15 H Urine Blood Negative Urine Nitrite Positive H Urine Bilirubin Negative Urine Urobilinogen 0.2 Ur Leukocyte Esterase Small H Urine RBC 0-2 Urine WBC 5-10 Ur Epithelial Cells Moderate Urine Crystals Negative Urine Bacteria Many Urine Casts Negative Urine Mucus Negative Urine Other Few Transitional Ur Culture Indicated? C&S Done As Ordered Urine Glucose 500 H Reviewed Pertinent PMH: Yes Objective Narrative Objective Narrative: Afebrile through the night Voiding qs though ketonuria persists Currently her 5th liter (since admission) of LR is infusing IV Pt appears comfortable and calm, conversational Time Spent with Patient Time Spent with Patient: 25-34 minutes Time was spent: preparing to see the patient(eg.review tests), obtaining and/or reviewing separately otained hiistory, ordering medications,tests, procedures, indepentently interpreting results and counseling the patient
[2025-06-23 09:44] LABS: HCT 27.9 % (36.0-46.0); HGB 9.6 g/dL (11.2-15.7)
[2025-06-23] MEDS: IRON SUCROSE COMPLEX 300 MG in Normal Saline 250 ML 167 MG IVPB (10:55)
[2025-06-23 13:11] VITALS: BP 101/58; PULSE 96
[2025-06-23 13:12] VITALS: BP 101/58; PULSE 96; RESP 16; TEMP 37.4; O2SAT 97
[2025-06-23 13:14] VITALS: PULSE 95
[2025-06-23 15:30] VITALS: TEMP 37.3
--- NOTE | 2025-06-23 15:47 | NUR.NOTE ---
Patient OOB to the bathroom, voiding see intake and output notes. Ketones negative. Patient tolerating malay muffin well. no n/v/d with eating or with PO hydration at this time. LR IV running at 125 ml/hr. Patient expresses ready to go home this evening. No pain noted. Showered independently. CNM notified of this assessment notes. Nursing Note:
[2025-06-23] MEDS: Pantoprazole 40 MG TABCR PO (18:23)
[2025-06-23] MEDS: cefTRIAXone 1 GM/50 ML BAG IVPB (19:24)
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
[2025-06-24] VITALS (10 sets, daily range): BP systolic 119–143; BP diastolic 59–84; PULSE 67–99
== END 2025-06-23 20:08 | disposition home or self-care (01) ==
LOC: BCD 18:13 → OBS 18:13
PROVIDERS: Admitting Provider Advanced Practice Midwife; PCP Family Medicine; Visit Provider Advanced Practice Midwife
DX: O98.513 Other viral diseases complicating pregnancy, third trimester (principal); O99.283 Endocrine, nutritional and metabolic diseases complicating pregnancy, third trimester; E86.0 Dehydration; Z3A.28 28 weeks gestation of pregnancy; O23.43 Unspecified infection of urinary tract in pregnancy, third trimester; B34.9 Viral infection, unspecified; R11.2 Nausea with vomiting, unspecified; G43.909 Migraine, unspecified, not intractable, without status migrainosus; Z87.820 Personal history of traumatic brain injury; O99.353 Diseases of the nervous system complicating pregnancy, third trimester; O99.613 Diseases of the digestive system complicating pregnancy, third trimester; O99.343 Other mental disorders complicating pregnancy, third trimester; F41.8 Other specified anxiety disorders; O09.73 Supervision of high risk pregnancy due to social problems, third trimester; O99.513 Diseases of the respiratory system complicating pregnancy, third trimester; J45.909 Unspecified asthma, uncomplicated; F43.10 Post-traumatic stress disorder, unspecified; F50.9 Eating disorder, unspecified
CPT/HCPCS: 36415; 87077; 96360; 81003; 81015; 85014; 85018; 85025; 87086; 87186; G0378; J0696; J1756; J2405; J2470; J2765

== ENCOUNTER 2025-06-27 01:45 | Outpatient (CLI) | payer MEDICAID, SELFPAY ==
[2025-06-27 09:44] LABS: HCT 33.1 % (36.0-46.0); HGB 11.2 g/dL (11.2-15.7); MCH 29.6 pg (27.0-33.0); MCHC 33.8 % (32.0-36.0); MCV 88 fL (80-95); MPV 9.9 fL (8.0-11.0); Platelet Count 251 10^3/uL (130-400); RBC 3.78 10^6/uL (3.93-5.22); RDW 12.5 % (11.7-14.6); RDW-SD 39.7 fL; WBC 6.46 10^3/uL (4.4-10.8)
[2025-06-27 10:09] LABS: Glucose,1 Hr (Glucola) 113 mg/dL (80-140)
== END 2025-06-27 01:46 | disposition home or self-care (01) ==
LOC: LBO 01:45
PROVIDERS: PCP Family Medicine; Visit Provider Advanced Practice Midwife
DX: Z34.93 Encounter for supervision of normal pregnancy, unspecified, third trimester (principal)
CPT/HCPCS: 36415; 82950; 85027

== ENCOUNTER 2025-06-27 09:15 | Outpatient (REF) | payer MEDICAID, SELFPAY ==
[2025-06-27 11:27] LABS: Cannabinoids THC Negative (Negative); Fentanyl Scr w/Rflx to Conf, U Negative (Negative)
== END 2025-06-27 09:16 | disposition home or self-care (01) ==
LOC: LBN 09:15
PROVIDERS: Advanced Practice Midwife; PCP Family Medicine; Visit Provider Advanced Practice Midwife
DX: Z34.93 Encounter for supervision of normal pregnancy, unspecified, third trimester (principal)
CPT/HCPCS: 80307; 80348

== ENCOUNTER 2025-07-11 16:14 | Outpatient (REF) | payer MEDICAID, SELFPAY | END 2025-07-11 16:15 | disposition home or self-care (01) | LOC: LBN 16:14 | PROVIDERS: PCP Family Medicine; Visit Provider Advanced Practice Midwife | DX: N89.8 Other specified noninflammatory disorders of vagina (principal); R30.0 Dysuria | CPT/HCPCS: 87077; 87086; 87480; 87510; 87660 ==